=== PATIENT | female | born 1935 | race Caucasian/White ===

== ENCOUNTER 2019-04-04 03:46 | Inpatient (IN) | payer MEDICARE, OTHER ==
[2019-04-04] MEDS ORDERED: cefTRIAXone\\ROCEPHIN 1 GM VIAL ONE (04:43)
[2019-04-04] MEDS ORDERED: Vancomycin HCl 1.5 GM in Sodium Chloride 0.9% 250 ML 300 ML IVPB SCH (05:00)
[2019-04-04] MEDS ORDERED: Fentanyl 100 MCG/2 ML VIAL ONE (05:02)
--- NOTE | 2019-04-04 06:37 | PDOC.FPRHP ---
- History of Present Illness Chief Complaint: weakness, AMS History of Present Illness: 83 yo f with pmhx of afib on xarelto last taken Sunday night, HTN, and DM presents with AMS. On Sunday they went to the ER, for confusion, hard time standing and moving. Was sent home and diagnosed w/ UTI. Today after lunch she started having AMS and acting lethargic. Complained of headache making her cry , 10/10 pain, and had garbled speech. Could understand what was being said to her and could respond appropriately, but speech seemed garbled to family. They report she had fever of 101.7 F. Son states her gait was shuffled and ataxic. Home BP was 222 systolic. At OSH, she had Nausea, vomiting, phenergan helped but made her loopy. ED Course: Report of unilateral weakness at OSH. L side weakness in our ED, Given vanc, rocephin, and IV fluids. - Allergies/Adverse Reactions Allergies Allergy/AdvReac Type Severity Reaction Status Date / Time No Known Allergies Allergy Unverified 04/04/19 04:51 - History PMHx: Afib, rate controlled, DM, HTN, cervical spine stenosis and was supposed to see a neurosurgeon in 2 weeks. PSHx: Knee surgery, hysterectomy FHx: parents-CVA Social: denies smoking, alcohol, drug use - Review of Systems General: reports: fever/chills (101.7) ENT: denies: nasal congestion, rhinorrhea Respiratory: reports: shortness of breath. denies: cough, congestion Cardiovascular: denies: chest pain Gastrointestinal: reports: nausea, vomiting Genitourinary: denies: dysuria Skin: denies: rashes Neurological: reports: other (headache, worst she's every had). denies: seizure - Vital signs BP: 122/78 HR: 88 RR: 18 Tmax: 100.8 Pox: 97% on RA - Physical Exam -Constitutional: in distress with eyes closed tightly HEENT: normocephalic and atraumatic, PERRLA, EOMI (sluggish), conjunctiva clear , no scleral icterus, grossly normal hearing, MMM Neck: supple, trachea midline, no LAD Heart: RRR, normal S1/S2, no murmurs/rubs/gallops Lungs: CTAB, no respiratory distress Abdomen: soft, non-tender, bowel sounds present Musculoskeletal: normal structure -Neurological: CN II, III, IV, intact but sluggish. No facial droop. CN VII, XII intact. Sensory deficit on L leg, L arm and L face. 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 L leg weak compared to R. Decreased reflexes in lower extremities. AxO x2 but thinking she was at OSH. Laughing inappropriately at her own confusion at times. Skin: no rash/lesions Heme/Lymphatic: no unusual bruising or bleeding, no purpura FMR H&P: A/P - Plan 83 female admitted for: Stroke r/o: - Patient to have stat MRI this AM with and without contrast - Repeat head CT in AM to see if SAH developing - Bloody tap from LP, difficult to interpret for cells, no organisms seen on gram stain SIRS w/o source: - Pt meets SIRS criteria - Unclear reason of her fever. Possible meningitis/encephalitis - Empiric vancomycin and rocephin - Blood cx pending - urine cx pending A-fib: - continue xarelto DM - continue home meds HTN - hold meds for permissive HTN if stroke seen on MRI Code: FULL VTE PPx: continue home xarelto Disposition/LOS: Admit to stroke as inpatient. FMR H&P: Upper Level - Pertinent history 83 yo f with chronic afib presents with fever, ams, and left sided weakness/ numbness. Pt received aspirin and nitro in the ED in [place] - Pertinent findings Vitals: BP: 122/78 HR: 93 T:100.7 O2sat:96% 2L PE: left sided decreased sensation face=arm=leg generalized weakness in upper and lower extremities CN 2-12 intact except for trigeminal nerve (sensation to left side of face) a&ox2 CTAB RRR abdomen soft Labs: UA no bacteria blood ketones protein positive CT head w/o contrast -no acute findings CT abdomen/pelvis without contrast -no acute findings CXR- -no acute findings EKG afib rate 82 no acute ischemic changes - Plan Date/Time: 04/04/19 0634 A/P: Acute encephalopathy -infectious such as meningitis vs acute cva vs brain mass -LP completed, hd ct w/o contrast negative -pt given vanc and rocephin in the ED empirically SIRS -w/o a source -vanc/rocephin in the ED given empirically -blood and urine cx sent CVA rule out -Hd CT w/o contrast negative for acute process -Will order CTA head and neck followed by an MRI -TTE ordered as pt is in chronic afib, anticoagulated -PT/OT/SPeech -Pt given aspirin in [place] -continue high intensity statin -order flp, hba1c, tsh, mg, phosph chronic afib on anticoagulation -continue home meds DM, type 2 -restart home meds HTN -restart home meds cardiomegaly with elevated bnp -TTE is ordered CODE: Full DVT: on karely Jones MD, PGY-3
[2019-04-04 07:14] LABS: Troponin I Less than 0.010 ng/mL (< 0.028)
[2019-04-04] MEDS ORDERED: Ondansetron PF 4 MG/2 ML Vial IVP PRN (08:10)
[2019-04-04] MEDS ORDERED: Ondansetron ODT 4 MG TAB SL PRN (08:10)
[2019-04-04] MEDS: Aspirin 81 mg Enteric Coated Tablet PO SCH (10:27)
[2019-04-04] MEDS: Flecainide 50 MG TAB PO SCH ×2 (10:28→23:40)
[2019-04-04] MEDS ORDERED: Lorazepam 2 MG/ML VIAL SLOW IVP SCH (10:45)
--- NOTE | 2019-04-04 11:48 | MRI ---
MRI BRAIN NONCONTRAST: DATE: 04/04/2019 HISTORY: 83 year old female with altered mental status: Confusion. Rule out stroke. FINDINGS: All images are degraded by patient motion. There is no obstructive hydrocephalus. There is no midline shift or any other evidence of mass effect. There is no extra-axial fluid collection. There is a moderate degree of T2-hyperintensities in the cerebral white matter consistent with chronic ischemic white matter changes due to microvascular atherosclerosis. There is no evidence of recent hemorrhage or restricted diffusion. IMPRESSION: 1) moderate chronic ischemic white matter changes. 2) otherwise negative
[2019-04-04] MEDS ORDERED: ISOVUE-370 76%-LOCM 1 ML ONE (12:45)
[2019-04-04 12:59] LABS: Anion Gap 14 mmol/L (10-20); BUN (Urea Nitrogen) 19 mg/dL (9.8-20.1); Calc. Creatinine Clearance 65 mL/min (70-130); Calcium 9.1 mg/dL (7.8-10.44); Carbon Dioxide 22 mmol/L (23-31); Chloride 100 mmol/L (98-107); Estimated GFR-MDRD 51; Glucose 124 mg/dL (83-110); Potassium 4.3 mmol/L (3.5-5.1); Sodium 132 mmol/L (136-145)
[2019-04-04 13:06] LABS: Troponin I Less than 0.010 ng/mL (< 0.028)
[2019-04-04] MEDS ORDERED: Acetaminophen 650 MG Suppository PR PRN (13:34)
--- NOTE | 2019-04-04 13:45 | CT ---
CTA HEAD WITH CONTRAST AND 3D VOLUME RENDERING: INDICATION: Left-sided weakness, altered mental status. FINDINGS: Bilateral BOSSMAN and MCA are patent. The bilateral SUPERVISOR [employer]ING reveal no significant stenosis or occlusion. Ba silar artery is patent. There is calcification at the distal vertebral arteries bilaterally producin g mild left and moderate right stenosis. Calcification of each carotid terminus also produces mild b ilateral luminal stenosis. 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 Otherwise, there is no significant intracranial arterial s tenosis or occlusion identified. No discrete intracranial aneurysm is seen. POS: [facility]
--- NOTE | 2019-04-04 14:02 | CT ---
CTA NECK WITH CONTRAST: Axial tomograms obtained with multiplanar reconstruction and 3D postprocessing. INDICATION: Left side weakness. Mental status change. FINDINGS: No evidence of stenosis seen at the origin of the arch vessels. Common carotid arteries are unremarkable bilaterally with no evidence of significant atherosclerotic disease. No stenosis in either common carotid artery. Mild atherosclerotic change is seen in the bulb and proximal ICAs bilaterally. No evidence of procurement intern al carotid artery stenosis. Both distal internal carotid arteries are tortuous without stenosis. Proximal vertebral arteries are patent and symmetric. There is atherosclerotic calcification seen in the distal right vertebral artery as it enters the bas e of the skull. This does result in moderate luminal stenosis which approaches 50% diameter. The ri ght vertebral beyond this stenosis is very small. Mild atherosclerotic change in the left vertebral as it enters the skull base; however, there is no s tenosis or narrowing of the left vertebral artery. Soft tissues show no evidence of mass or adenopathy. There are moderate degenerative changes seen in the cervical spine. Facet hypertrophy is seen at mul tiple levels resulting in foraminal stenosis at C3-4, C4-5, and C5-6 levels. Posterior spondylitic c hanges impinge on the cord at C4-5. IMPRESSION: 1. Mild atherosclerotic change is seen in the bulbs bilaterally. No evidence of common carotid or i nternal carotid artery stenosis. 2. There is atherosclerotic calcification of the distal right vertebral artery as it enters the skul l base which does result in moderate luminal stenosis. The right vertebral artery beyond this stenos is is very small. POS: [facility]
--- NOTE | 2019-04-04 14:49 | CT ---
CT lumbar spine noncontrast limited: DATE: 04/04/2019 HISTORY: 83-year-old female with altered mental status. Successful lumbar puncture this morning by clinician. Image guided lumbar puncture requested. FINDINGS: The proxy informed consent form used for the lumbar puncture earlier this morning was used. Patient w as placed prone on CT table. Skin of lower back was prepared and draped in usual sterile fashion. Patient was combative, constantly moving, and holding onto the CT table, throughout the attempted pro cedure. After multiple attempts, the procedure was aborted. IMPRESSION: 1. CT guided lumbar puncture aborted because of patient's inability to cooperate. 2. Anesthesiology service will be required.
[2019-04-04] MEDS: Ampicillin 2 GM in Sodium Chloride 0.9% 100 ML IVPB SCH ×3 (15:16→21:08)
[2019-04-04] MEDS ORDERED: cefTRIAXone\\ROCEPHIN 2 GM VIAL ONE (15:26)
[2019-04-04] MEDS: Acetaminophen 325 MG TAB PO PRN (15:40)
[2019-04-04] MEDS: cefTRIAXone\\ROCEPHIN 2 GM in Sodium Chloride 0.9% 100 ML IVPB SCH (16:39)
[2019-04-04] MEDS ORDERED: Vancomycin HCl 1 GM in Premix Bag 1 BAG IVPB SCH (17:00)
[2019-04-04] MEDS: DEXAMETHASONE SOD PHOSPHATE IVPB SCH ×2 (17:30→21:08)
[2019-04-04] MEDS: SODIUM CHLORIDE 0.9% IVPB SCH ×2 (17:30→21:08)
--- NOTE | 2019-04-04 18:00 | HP ---
HISTORY OF PRESENT ILLNESS: I have examined the patient. I have discussed the case with Dr. Lin and agree with her assessment and plan. Ms. Pratt is an 83-year-old white female, who has been ill for at least several days. She has been seen in some outlying emergency rooms with AMS and confusion. She was diagnosed initially with the UTI. Later, she complained of headache, was taken back to the ER. At that time, a head CT did not show any acute changes, but she has been transferred here for a higher level of care. When she presented here, she was febrile with a temperature of a 101.7. She was complaining of headache. She had an LP in the ER, which evidently was unsuccessful and traumatic. We have started broad-spectrum antibiotics to cover the possibility of meningitis, and I have reordered another imaging study to further assess her headache and to assess for the possibility of a subarachnoid bleed given that she had complained of severe headache at the onset of this illness. However, as stated, her outlying ER head CT was negative. PHYSICAL EXAMINATION: GENERAL: On examination this morning, the patient is slightly lethargic, but arousable. She is oriented. She does complain of headache. VITAL SIGNS: Her blood pressure is 122/78, heart rate is 88, respirations are 18, current temperature is a 100.8. Her room air pulse ox is 97%. EARS, NOSE, AND THROAT: No erythema. No exudate noted. NECK: Supple. CARDIAC: Heart rhythm is regular. S4 gallop. No murmur or rub noted. LUNGS: Clear, but diminished. No wheezing or rales. No respiratory distress. ABDOMEN: Flat, scaphoid, soft, obese. No guarding or rebound. NEUROLOGICAL: Neurologically, she has evidence of some left-sided weakness, which is very subtle. She is oriented x2. LABORATORY DATA: From the outlying ER is not yet available. ASSESSMENT: Possible stroke, possible sepsis, possible meningitis. PLAN: We will admit the patient. Begin antibiotics. Repeat imaging studies to include MRI with and without contrast and proceed based on these findings. Job ID: [id number]
[2019-04-04] MEDS: metFORMIN 500 MG TAB PO SCH (18:32)
--- NOTE | 2019-04-04 18:49 | CON ---
DATE OF CONSULTATION: 04/04/2019 This consult is performed via telemedicine with RN, Jimmy Schroeder. CHIEF COMPLAINT: The patient with lethargy and headache. HISTORY OF PRESENT ILLNESS: History was obtained from her nephew and her family members who were in the room. He reports the patient has had headache for a few days. She also had a workup with her primary care doctor. They shared the MRI C-spine results with me, which showed multiple levels of disk osteophyte complexes, flattening of ventral cord at C3-C4, and also foraminal narrowing and central canal stenosis. The patient was told that she had these headaches due to the neck symptoms. Yesterday, her blood pressure went up to 220/180 at lunch and she became lethargic and her hand fell in the food and they came to the hospital for this reason. She is being worked up by the treatment team, which is a teaching team at this time and a consult was made to check if she had meningitis. The patient was responsive earlier before my visit with her this evening and in the afternoon when we gathered information, the patient was down in CT angio plus LP. She had a lumbar puncture at an outside facility. It was a bloody tap, so far no growth. Number of RBCs and white count was not available per the report. No protein or glucose was available to me either for review. At the outside facility, she was having some nausea and vomiting and received Phenergan, which made her a bit loopy per the chart. The patient's family also relayed that the patient had a recent urinary infection. PREVIOUS MEDICAL HISTORY: Hypertension, diabetes, cervical spinal canal stenosis. PAST SURGICAL HISTORY: Knee surgery and hysterectomy. FAMILY HISTORY: Parents had CVA. SOCIAL HISTORY: The patient is not a smoker or alcoholic. REVIEW OF SYSTEMS: Difficult to obtain from the patient because she was very obtunded and sleepy when we saw her. LABORATORY AND DIAGNOSTIC DATA: Her current lab workup; sodium 132, potassium 4.3, bicarb 22, BUN 19, and creatinine 1.04. Her white count not available to me for review at our current labs, looks like it is pending. Hepatitis/HIV scan is negative. Preliminary microbiology report for CSF showed no organisms, few white cells, many RBCs were present. Protein and glucose for CSF are not available to me. Also, her CT angiography was completed. CT [place] and CT angio of the neck showed atherosclerotic calcification of distal right vertebral artery. Mild atherosclerotic changes in the ICA bulb. MRI of the brain was also reviewed and it showed moderate chronic ischemic white matter changes, otherwise negative. PHYSICAL EXAMINATION: VITAL SIGNS: Temperature 100.2, pulse 79, respiratory rate 16, and blood pressure 186/90. GENERAL APPEARANCE: The patient is very sleepy, difficult to arouse. CHEST: Clear vesicular breathing. CARDIOVASCULAR: S1 and S2 heard. NEUROLOGIC: Higher intellectual functions. The patient was very sleepy, difficult to arouse. Pupils were 2 mm, reactive. Past this, the patient's was upset with us and told us to leave her alone and asked us to stop examining the patient. IMPRESSION AND RECOMMENDATIONS: The patient is an 83-year-old lady with history of hypertension, became lethargic. She also has had headaches, recently had cervical spine stenosis. Her limited examination performed by our team so far showed no neck rigidity. She was sedated with Ativan, and she was not responsive and pupils were 2 mm. At that point, we were asked to stop examining the patient and leave the room. Based on this limited evaluation, it is difficult to make comprehensive assessment. However, based on evidence and my observation plus exam of the patient, we are able to say there is no neck stiffness when she is sleepy, which is not typical for meningismus. At this time, she does have cervical spine stenosis. The neck stiffness observed when she was agitated or awake, could have been due to neck muscle spasms. At this time, I am unable to help you any further. Recommendation would be to wait for culture results and we will reassess the patient tomorrow. Job ID: [id number] [facility]
[2019-04-04] MEDS: Rivaroxaban 10 MG TAB PO SCH ×2 (19:19→23:39)
--- NOTE | 2019-04-04 21:02 | PDOC.FM ---
Addendum entered and electronically signed by Bessy Jama DO 04/05/19 12:06: Date 04/05/19, 11:30 Original Note: - Subjective Subjective: At 6 AM: Pt awakens when I enter the room, opens eyes and moves extremities. Pt spoke in 4-5 word sentences. Pt knows she is somewhere because of a BP problem. Mumbles a lot and does not follow commands. Denies any pain. Later at 10:30: Pt is fully awake, sitting up in bed talking with family and carrying a conversation. Has no current complaints. States her head does not hurt. - Objective MAR Reviewed: Yes Vital Signs & Weight: Vital Signs (12 hours) Temp Pulse Resp BP Pulse Ox 04/04/19 19:56 99.5 F 92 16 140/60 91 L 04/04/19 16:55 135/65 04/04/19 16:00 98.7 F 89 18 169/81 H 94 L 04/04/19 12:47 100.2 F H 79 16 186/90 H 92 L Weight Admit Weight 97.749 kg Weight 97.749 kg Selected Entries 04/05/19 04/05/19 04/05/19 00:00 04:00 08:00 Blood Pressure 168/87 H 137/79 155/73 H [semi fowlers] I&O: 04/03/19 04/04/19 04/05/19 06:59 06:59 06:59 Intake Total 700 Output Total 10 Balance 690 Result Diagrams: 04/05/19 18:13 04/05/19 18:13 Radiology Reviewed by me: Yes (CTA vascular disease of distal vertebral artery and distal cartids ) Phys Exam - Physical Examination Constitutional: NAD HEENT: PERRLA, sclera anicteric Dry MM. Neck: no nodes, no JVD, supple Respiratory: no wheezing, no rales, no rhonchi, clear to auscultation bilateral Cardiovascular: RRR, no significant murmur, no rub Gastrointestinal: soft, no distention, positive bowel sounds Tenderness to light palpation over LLQ abdomen. Musculoskeletal: no edema, pulses present Neurological: non-focal, normal sensation, moves all 4 limbs Downward babinski bilaterally. PERRLA Psychiatric: normal affect, A&O x 3 Deviation from normal: Oriented to person, place, and time. Skin: no rash, normal turgor, cap refill <2 seconds Dx/Plan (1) Hypertensive urgency Code(s): I16.0 - HYPERTENSIVE URGENCY Status: Acute (2) Encephalopathy acute Code(s): G93.40 - ENCEPHALOPATHY, UNSPECIFIED Status: Acute (3) SIRS (systemic inflammatory response syndrome) Code(s): R65.10 - SIRS OF NON-INFECTIOUS ORIGIN W/O ACUTE ORGAN DYSFUNCTION Status: Acute (4) Fever Code(s): R50.9 - FEVER, UNSPECIFIED Status: Acute Qualifiers: Fever type: unspecified Qualified Code(s): R50.9 - Fever, unspecified (5) A-fib Code(s): I48.91 - UNSPECIFIED ATRIAL FIBRILLATION Status: Acute (6) HTN (hypertension) Code(s): I10 - ESSENTIAL (PRIMARY) HYPERTENSION Status: Acute (7) Diabetes mellitus Code(s): E11.9 - TYPE 2 DIABETES MELLITUS WITHOUT COMPLICATIONS Status: Acute Qualifiers: Diabetes mellitus type: type 2 Diabetes mellitus usp insulin use: unspecified terminal clerk insulin use status - Plan Plan: 83 y/o F admitted for Acute Encephalopathy work up. Etiology unclear, infectious suspected, but no known source. 1. Acute encephalopathy -infectious such as meningitis vs acute cva/TIA - Encephalopathy has improved with gradual lowering of BP's and X2 days of antibiotic therapy. Possible cause was HTN urgency vs emergency. -Awaiting LP ccx -CT w/o contrast negative -pt given vanc and rocephin in the ED empirically -Continue antibiotic therapy of Vanc, Rocephin, Ampicillin -Continue dexamethasone for total of X4 days. Stop date 04/07. - Case Management will see pt for potential rehab placement 2. SIRS -fever without a source -Tmax overnight 99.5 F -blood ccx no growth to date, and urine cxx pending -PE was not suggestive of Meningitis, as no meningismus 3. CVA rule out -CT w/o contrast negative for acute process -CTA [place] showed vascular disease of vertebral and distal carotids arteries bilaterally. Moderate stenosis of the distal R vertebral artery. -CTA Head and neck showed no common carotid or internal carotid artery stenosis , but confirmed above findings in [place]. -Head MRI showed no acute changes, but chronic ischemic white matter changes. -TTE ordered as pt is in chronic afib, anticoagulated with Xarelto -PT/OT/Speech consults -continue high dose statin therapy - Fasting Lipid panel: Total chol 174, LDL 116, HDL 37, Triglycerides 103 4. Chronic afib on anticoagulation -continue Xarelto 5. DM, type 2 -continue home meds 6. HTN -Restarted home Metoprolol Tartrate 50 BID -Hydralazine for PRN BP control 7. Cardiomegaly with elevated BNP -TTE is ordered CODE: Full DVT: on xarelto Addendum - Attending - Attending Attestation Date/Time: 04/05/191956 I personally evaluated the patient and discussed the management with Dr. Marie I agree with the History, Examination, Assessment and Plan documented above with any addition or exceptions noted below. Patient more alert during attending rounds. relates patients BP labile some underlying dementia will continue antibiotic CT attempt for LP yesterday unsuccessful CSF from traumatic tap with no growth continue ABX for now. Suspect encephalopathy secondary to hypertension continue observation. Discussed rehab placement with patient, and son.
[2019-04-04] MEDS ORDERED: Enoxaparin Sodium 40 MG/0.4 ML SYRINGE SC SCH (23:30)
--- NOTE | 2019-04-04 23:33 | PDOC.EVN ---
Event Note - Event Note Event Note: Neuro Change Evaluation Received report from RN that when attempting to give pt nighttime medications, pt would not follow commands. Pt laughing inappropriately. Went to assess pt. GCS 12 (3E, 6M, 3V) which is decreased from seeing her in ED yesterday. Expressive aphasia. Pt responds to questions but words are jumbled and incoherent. Often not forming words. Strength 4/5 R and 3/5 on L. Would not command to lift legs. DTRs 2+ in LLE, b/l UE. Not elicited in RLE possibly due to knee arthroplasty. Cranial nerve assessment limited. PEERLA. Would not follow commands for other cranial nerves. Assess/Plan: Acute neuro change: - CBC, trops, prolactin, EKG, and STAT CT w/o contrast ordered.
[2019-04-04] MEDS: Atorvastatin Calcium 40 MG TAB PO SCH (23:39)
[2019-04-04 23:47] LABS: #Lymphocytes 0.9 thou/uL (1.20-3.40); #Monocytes 0.1 thou/uL (0.11-0.59); #Neutrophils 5.7 thou/uL (1.40-6.50); %Basophils 0.1 % (0.0-1.0); %Eosinophils 0.3 % (0.0-10.0); %Lymphocytes 13.6 % (21.0-51.0); %Monocytes 1.9 % (0.0-10.0); %Neutrophils 84.1 % (42.0-75.0); Hemoglobin 12.8 g/dL (12.0-16.0); Mean Corpuscular HGB CONC 33.7 g/dL (32.0-36.0); Mean Corpuscular Hemoglobin 30.3 pg (27.0-31.0); Mean Platelet Volume 7.9 fL (7.4-10.4); Platelet Count 213 thou/uL (130-400); RBC Distribution Width 12.2 % (11.5-14.5); Red Blood Cell (RBC) Count 4.22 mill/uL (4.20-5.40); White Blood Cell (WBC) Count 6.7 thou/uL (4.8-10.8)
[2019-04-05] MEDS: Ampicillin 2 GM in Sodium Chloride 0.9% 100 ML IVPB SCH ×7 (00:40→23:53)
[2019-04-05] MEDS: DEXAMETHASONE SOD PHOSPHATE IVPB SCH ×4 (01:20→21:15)
[2019-04-05] MEDS: SODIUM CHLORIDE 0.9% IVPB SCH ×4 (01:20→21:15)
[2019-04-05] MEDS: cefTRIAXone\\ROCEPHIN 2 GM in Sodium Chloride 0.9% 100 ML IVPB SCH ×2 (03:41→17:11)
[2019-04-05 05:43] LABS: #Lymphocytes 0.8 thou/uL (1.20-3.40); #Monocytes 0.1 thou/uL (0.11-0.59); %Eosinophils 0.1 % (0.0-10.0); %Lymphocytes 11.4 % (21.0-51.0); %Monocytes 1.8 % (0.0-10.0); %Neutrophils 86.7 % (42.0-75.0); Hemoglobin 12.9 g/dL (12.0-16.0); Mean Corpuscular HGB CONC 33.8 g/dL (32.0-36.0); Mean Corpuscular Hemoglobin 30.6 pg (27.0-31.0); Mean Corpuscular Volume 90.5 fL (78.0-98.0); Mean Platelet Volume 8.3 fL (7.4-10.4); Platelet Count 207 thou/uL (130-400); RBC Distribution Width 12.2 % (11.5-14.5); Red Blood Cell (RBC) Count 4.22 mill/uL (4.20-5.40); White Blood Cell (WBC) Count 6.9 thou/uL (4.8-10.8)
[2019-04-05 06:03] LABS: Anion Gap 13 mmol/L (10-20); BUN (Urea Nitrogen) 16 mg/dL (9.8-20.1); Calc. Creatinine Clearance 79 mL/min (70-130); Calcium 9.3 mg/dL (7.8-10.44); Carbon Dioxide 23 mmol/L (23-31); Cardiac Risk 4.7 (Less than 4.5); Chloride 100 mmol/L (98-107); Cholesterol 174 mg/dl (< 200 Desired); Estimated GFR-MDRD 63; Glucose 185 mg/dL (83-110); HDL Cholesterol 37 mg/dL (>60 Neg Risk); LDL Cholesterol, Calculated 116 mg/dL; Potassium 4.3 mmol/L (3.5-5.1); Sodium 132 mmol/L (136-145); Triglycerides 103 mg/dL (Less than 150)
--- NOTE | 2019-04-05 08:04 | CT ---
PRELIMINARY REPORT/[facility]/EMERGENCY AFTER HOURS PROCEDURE: EXAM: CT Head Without Contrast EXAM DATE/TIME: 04/05/2019 12:12 AM CLINICAL HISTORY: 83 years old, female; Altered mental status/memory loss; Patient HX: Mental status change approx 2000 , PT unable to follow commands and has had speech change TECHNIQUE: Imaging protocol: Computed tomography of the head without contrast. COMPARISON: No relevant prior studies available. FINDINGS: Brain: Scattered areas of hypoattenuation, likely chronic small vessel ischemic change, demyelination , or gliosis. No mass, hemorrhage, or acute infarction. Ventricles: Normal. Bones/joints: Normal. Sinuses: Normal as visualized. Mastoid air cells: Normal as visualized. Soft tissues: Unremarkable. Vasculature: Atherosclerotic vascular calcifications. IMPRESSION: No acute intracranial abnormality. Thank you for allowing us to participate in the care of your patient. Dictated and Authenticated by: Jd Julien MD 04/05/2019 12:50 AM Central Time ([place] & [place]) FINAL REPORT CT HEAD WITHOUT CONTRAST: IMPRESSION: Chronic ischemic change. No acute abnormality. I am in agreement with the preliminary report issued tiffanie Sierra. POS: OFF
[2019-04-05] MEDS: Aspirin 81 mg Enteric Coated Tablet PO SCH (09:14)
[2019-04-05] MEDS: metFORMIN 500 MG TAB PO SCH ×2 (09:15→17:06)
[2019-04-05] MEDS: Flecainide 50 MG TAB PO SCH ×2 (09:16→21:23)
--- NOTE | 2019-04-05 11:05 | PRG ---
DATE OF SERVICE: 04/05/2019 This is a followup note via Telemedicine with nurse, Geetha. CHIEF COMPLAINT: Altered mental status. INTERVAL HISTORY: The patient is doing much better today. She has been receiving physical therapy as well. There is still mild confusion, but overall, she is better. She has received 2 to 3 days of antibiotics so far. She is pending interim IR procedure for LP, and microbiology results so far did not indicate any growth either in blood culture or CSF culture, but the spinal tap was bloody tap. White count 6.9, hemoglobin 12.9, hematocrit 38.2, and platelet count 207. Chemistry; sodium 132, potassium 4.3, chloride 100, bicarb 23, BUN 16, creatinine 0.86, and glucose 185. Lipid profile is within normal limits. PHYSICAL EXAMINATION: VITAL SIGNS: Temperature 97.8, pulse 100, respiratory rate is 18, O2 saturation is 95, and blood pressure 155/73. GENERAL APPEARANCE: Well-built, well-nourished lady, who is smiling and very pleasant. CHEST: Clear vesicular breathing. CVS: S1, S2 heard. No murmurs. NEUROLOGIC: She was oriented to place and person and knew the month was March. NECK: No neck stiffness was noted. NEUROLOGIC: Cranial nerves, no facial asymmetry. Normal extraocular movements. Normal sensation of face. Normal hearing. Normal elevation of palate. Tongue midline. Motor; muscle bulk normal, tone normal. Strength, 5/5 in both upper and lower extremities. Deep tendon reflex, 2+ in the right arm in both legs and left arm, 1+. Sensory was normal. Cerebellar was normal. IMPRESSION: The patient is an 83-year-old lady who was admitted with altered mental status as well as some confusion and lethargy, and she did have a recent urinary tract infection, and she had been diagnosed with some neck problems as well. Her examination today was normal. We obtained family consent for this examination, and I answered all the questions that the family had about her C-spine abnormality. RECOMMENDATIONS: 1. Since she is doing much better and the results of LP may be of low-yield at this time. I discussed with the primary care team to see if they would consider not doing another LP. 2. The patient needs to see her neurosurgeon in 10 days for her neck evaluation. At this time, I do not see any findings of myelopathy. We will see the patient as needed. Job ID: [id number] MTDD
[2019-04-05] MEDS: hydrALAZINE 20 MG/ML VIAL SLOW IVP PRN ×2 (12:24→17:09)
--- NOTE | 2019-04-05 14:57 | EKG ---
Test Reason : Blood Pressure : / mmHG Vent. Rate : 094 BPM Atrial Rate : 104 BPM P-R Int : 000 ms QRS Dur : 102 ms QT Int : 370 ms P-R-T Axes : 000 054 044 degrees QTc Int : 462 ms Atrial fibrillation Abnormal ECG Confirmed by UNIQUE AMEZCUA M.D. ([id number]), greeting card editor KATHERINE GENTILE ([id number]) on 04/05/2019 2:57:08 PM Referred By: Confirmed By:UNIQUE AMEZCUA M.D.
[2019-04-05] MEDS: Acetaminophen 325 MG TAB PO PRN (17:41)
[2019-04-05] MEDS: Metoprolol Tartrate 50 MG TAB PO SCH (17:48)
[2019-04-05] MEDS ORDERED: Metoprolol Tartrate 5 MG/5 ML VIAL IVP SCH (18:00)
[2019-04-05] MEDS ORDERED: Nitroglycerin 0.4 MG TAB (25 Tab Bottle) ONE (18:15)
[2019-04-05] MEDS ORDERED: Nitroglycerin 2% Ointment 1 INCH/1 GM Packet ONE (18:15)
[2019-04-05] MEDS ORDERED: Diltiazem HCl 125 MG, Admixture Fee 1 EACH in Sodium Chloride 0.9% 100 ML IVPB SCH (18:15)
[2019-04-05] MEDS ORDERED: Lorazepam 2 MG/ML VIAL ONE (18:45)
[2019-04-05 18:48] LABS: #Lymphocytes 1.1 thou/uL (1.20-3.40); #Monocytes 0.3 thou/uL (0.11-0.59); #Neutrophils 9.3 thou/uL (1.40-6.50); %Basophils 0.1 % (0.0-1.0); %Eosinophils 0.2 % (0.0-10.0); %Lymphocytes 9.9 % (21.0-51.0); %Monocytes 2.8 % (0.0-10.0); %Neutrophils 86.9 % (42.0-75.0); Hemoglobin 13.2 g/dL (12.0-16.0); Mean Corpuscular HGB CONC 34.3 g/dL (32.0-36.0); Mean Corpuscular Hemoglobin 31.1 pg (27.0-31.0); Mean Corpuscular Volume 90.5 fL (78.0-98.0); Mean Platelet Volume 8.2 fL (7.4-10.4); Platelet Count 227 thou/uL (130-400); RBC Distribution Width 12.2 % (11.5-14.5); Red Blood Cell (RBC) Count 4.24 mill/uL (4.20-5.40); White Blood Cell (WBC) Count 10.7 thou/uL (4.8-10.8)
[2019-04-05 19:00] LABS: Anion Gap 18 mmol/L (10-20); BUN (Urea Nitrogen) 19 mg/dL (9.8-20.1); CK (CPK) 109 U/L (29-168); Calc. Creatinine Clearance 68 mL/min (70-130); Calcium 9.4 mg/dL (7.8-10.44); Carbon Dioxide 20 mmol/L (23-31); Chloride 98 mmol/L (98-107); Estimated GFR-MDRD 53; Glucose 224 mg/dL (83-110); Potassium 3.8 mmol/L (3.5-5.1); Sodium 132 mmol/L (136-145)
[2019-04-05 19:05] LABS: CKMB 2.3 ng/mL (0-6.6); Troponin I Less than 0.010 ng/mL (< 0.028)
--- NOTE | 2019-04-05 19:36 | CT ---
CT OF BRAIN PERFORMED WITHOUT CONTRAST ENHANCEMENT: 04/05/19 HISTORY: Vision changes. Slurred speech. COMPARISON: Earlier examination same day. Generalized ventricular and sulcal prominence with decreased attenuation to the periventricular white matter consistent with chronic ischemic white matter change. There are no signs of intracerebral hem orrhage or extra-axial fluid collections. The mastoid air cells are clear. The visualized sinuses sh ow minimal mucosal change within the ethmoid air cells. IMPRESSION: 1. No acute intracranial abnormalities. 2. Findings telephoned to nurseKaykay at the time of this dictation. POS: TERRENCE
--- NOTE | 2019-04-05 19:39 | RAD ---
PORTABLE CHEST: 04/05/19 INDICATIONS: Atrial fibrillation. Chest pain. Mild cardiomegaly. Mild vascular congestion. No focal infiltrate, effusion, or significant edema. IMPRESSION: Cardiomegaly with mild vascular congestion. POS: AGW
[2019-04-05 19:50] LABS: INR-International Normal Ratio 1.1; PTT 28.3 SEC (22.9-36.1); Prothrombin Time 14.2 SEC (12.0-14.7)
[2019-04-05] MEDS: Atorvastatin Calcium 40 MG TAB PO SCH (21:25)
[2019-04-05] MEDS ORDERED: Rivaroxaban 10 MG TAB PO SCH ×2 (22:30)
[2019-04-05] MEDS ORDERED: Lorazepam 2 MG/ML VIAL SLOW IVP PRN (22:39)
[2019-04-06 00:40] LABS: Hemoglobin 12.2 g/dL (12.0-16.0); Platelet Count 220 thou/uL (130-400)
[2019-04-06 00:57] LABS: Lactic Acid 3.5 mmol/L (0.5-2.2)
[2019-04-06] MEDS: DEXAMETHASONE SOD PHOSPHATE IVPB SCH ×3 (01:35→13:48)
[2019-04-06] MEDS: SODIUM CHLORIDE 0.9% IVPB SCH ×3 (01:35→13:48)
[2019-04-06] MEDS: Ampicillin 2 GM in Sodium Chloride 0.9% 100 ML IVPB SCH ×5 (01:36→17:35)
[2019-04-06] MEDS: cefTRIAXone\\ROCEPHIN 2 GM in Sodium Chloride 0.9% 100 ML IVPB SCH ×2 (04:26→16:55)
--- NOTE | 2019-04-06 05:29 | PDOC.FM ---
- Subjective Subjective: Pt had an episode of A. fib with RVR overnight. She was given a dose of metoprolol and started on a cardizem drip. The cardizem drip was discontinued after a couple of hours as the pt's HR was below 60. Acute elevation in Troponins. Pt developed loss of vision. Transferred to [facility]. CT head showed no acute findings. This morning the pt is resting comfortably, HR in the 75-80 range. She states her vision is back to normal. Pt denies any weakness or paresthesia. She feels confused. - Objective MAR Reviewed: Yes Vital Signs & Weight: Vital Signs (12 hours) Temp Pulse Pulse Pulse Pulse Pulse Pulse 04/06/19 00:00 97.9 F 04/05/19 21:51 04/05/19 21:50 04/05/19 19:30 98.4 F 04/05/19 18:07 152 H 136 H 133 H 147 H 111 H 137 H Pulse Pulse Pulse Resp BP BP BP 04/06/19 00:00 04/05/19 21:51 04/05/19 21:50 16 04/05/19 19:30 04/05/19 18:07 135 H 119 H 121 H 132/50 L 133/84 126/56 L BP BP BP BP BP BP Pulse Ox 04/06/19 00:00 04/05/19 21:51 97 04/05/19 21:50 96 04/05/19 19:30 04/05/19 18:07 100/59 L 98/56 L 116/72 138/110 H 133/80 139/90 Pulse Ox Pulse Ox 04/06/19 00:00 04/05/19 21:51 04/05/19 21:50 04/05/19 19:30 04/05/19 18:07 97 96 Weight Admit Weight 97.749 kg Weight 97.749 kg Most Recent Monitor Data Heart Rate from ECG 71 NIBP 114/63 NIBP BP-Mean 80 Respiration from ECG 17 SpO2 99 I&O: 04/04/19 04/05/19 04/06/19 06:59 06:59 06:59 Intake Total 700 Output Total 10 Balance 690 Result Diagrams: 04/06/19 00:30 04/05/19 18:13 Radiology Reviewed by me: Yes (CT head, no acute findings. ) Phys Exam - Physical Examination Constitutional: NAD HEENT: PERRLA, moist MMs, sclera anicteric Neck: no nodes, no JVD, supple, full ROM Respiratory: no rales, no rhonchi, wheezing present Cardiovascular: no significant murmur, no rub irregularly irregular, rate 80 bpm. Gastrointestinal: soft, non-tender, no distention, positive bowel sounds Musculoskeletal: pulses present, edema present (2+ pitting edema bilaterally. ) Neurological: non-focal, normal sensation, moves all 4 limbs Psychiatric: normal affect Deviation from normal: oriented to person and time. Disoriented to place and situation. Skin: no rash, normal turgor, cap refill <2 seconds Dx/Plan (1) Encephalopathy acute Code(s): G93.40 - ENCEPHALOPATHY, UNSPECIFIED Status: Acute (2) Hypertensive urgency Code(s): I16.0 - HYPERTENSIVE URGENCY Status: Acute (3) SIRS (systemic inflammatory response syndrome) Code(s): R65.10 - SIRS OF NON-INFECTIOUS ORIGIN W/O ACUTE ORGAN DYSFUNCTION Status: Acute (4) Fever Code(s): R50.9 - FEVER, UNSPECIFIED Status: Acute Qualifiers: Fever type: unspecified Qualified Code(s): R50.9 - Fever, unspecified (5) A-fib Code(s): I48.91 - UNSPECIFIED ATRIAL FIBRILLATION Status: Acute Qualifiers: Atrial fibrillation type: paroxysmal Qualified Code(s): I48.0 - Paroxysmal atrial fibrillation (6) HTN (hypertension) Code(s): I10 - ESSENTIAL (PRIMARY) HYPERTENSION Status: Acute (7) Diabetes mellitus Code(s): E11.9 - TYPE 2 DIABETES MELLITUS WITHOUT COMPLICATIONS Status: Acute Qualifiers: Diabetes mellitus type: type 2 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 Etiology unclear, infectious suspected, but no known source. 1. Acute encephalopathy -infectious such as meningitis vs acute cva/TIA - Encephalopathy has improved with gradual lowering of BP's and X2 days of antibiotic therapy. Possible cause was HTN urgency vs emergency. -LP ccx, no growth to date -CT w/o contrast negative -pt given vanc and rocephin in the ED empirically -Continue antibiotic therapy of Vanc, Rocephin, Ampicillin -Continue dexamethasone for total of X4 days. Stop date 04/07. - Case Management will see pt for potential rehab placement 2. SIRS -fever without a source -No overnight fever -blood ccx and urine cxx no growth to date -PE was not suggestive of Meningitis, as no meningismus - Pt is wheezing today 04/06. CXray on 04/05 showed cardiomegaly with mild vascular congestion. 3. Paroxysmal A. Fib with RVR - Pt had a fib with RVR overnight (04/06) - Diltiazem drip started overnight and discontinued around 0200 on 04/06, after HR lowered below 60. - Continue Flecainide, metoprolol and Xarelto - Consult cardiology 4. Elevated troponin levels - Trops 0.250, 0.148 - Most likely from demand ischemia - Trend trops 5. CVA rule out -CT w/o contrast negative for acute process during overnight event of acute onset of blindness. 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 Moderate stenosis of the distal R vertebral artery. -CTA Head and neck showed no common carotid or internal carotid artery stenosis , but confirmed above findings in [place] [facility] [place]. -Head MRI showed no acute changes, but chronic ischemic white matter changes. -TTE ordered as pt is in chronic afib, anticoagulated with Xarelto -PT/OT/Speech consults -continue high dose statin therapy - Fasting Lipid panel: Total chol 174, LDL 116, HDL 37, Triglycerides 103 5. Chronic afib on anticoagulation -continue Xarelto 6. DM, type 2 -continue home meds 7. HTN -Restarted home Metoprolol Tartrate 50 BID -Hydralazine for PRN BP control 8. Cardiomegaly with elevated BNP -TTE EF 50-55%, nml pulmonary pressures CODE: Full DVT: on xarelto Addendum - Attending - Attending Attestation Date/Time: 04/06/19 1148 I personally evaluated the patient and discussed the management with Dr. Jama I agree with the History, Examination, Assessment and Plan documented above with any addition or exceptions noted below. Patient continue to wax and wane mentally was extremely lucid yesterday to acute delerium last pm. Spouse contributing to her confusion with well meaning but overstimulation of patient. Patient per family with known underlying baseline dementia, Episodes correlated to episodes of Af with RVR, patient with prior DC cardioversion per [place] Bacteriologist [place]. Will ask Cardiology today for help with Atrial fibrillation management rate currently controlled with BB , patient has been on xarelto and flecainide, obtain echocardiogram and continued observation. Can d/c empirical antibiotic and dexamethasone if CSF cultures negative at 48 hours.
[2019-04-06] MEDS: metFORMIN 500 MG TAB PO SCH ×2 (09:43→16:55)
[2019-04-06] MEDS: Metoprolol Tartrate 50 MG TAB PO SCH (09:44)
[2019-04-06] MEDS: Flecainide 50 MG TAB PO SCH (09:44)
[2019-04-06] MEDS: Aspirin 81 mg Enteric Coated Tablet PO SCH (09:44)
[2019-04-06] MEDS: Haloperidol Lactate 5 MG/ML VIAL SLOW IVP PRN ×2 (10:03→13:49)
--- NOTE | 2019-04-06 10:36 | EKG ---
Test Reason : STAT Blood Pressure : / mmHG Vent. Rate : 084 BPM Atrial Rate : 082 BPM P-R Int : 000 ms QRS Dur : 090 ms QT Int : 380 ms P-R-T Axes : 000 049 052 degrees QTc Int : 449 ms Atrial fibrillation Abnormal ECG When compared with ECG of 04-APR-2019 04:06, No significant change was found Confirmed by DR. Abdirahman ARREOLA ([id number]) on 04/06/2019 10:36:02 AM Referred By: Confirmed By:DR. Abdirahman ARREOLA
[2019-04-06 12:12] LABS: Anion Gap 16 mmol/L (10-20); BUN (Urea Nitrogen) 20 mg/dL (9.8-20.1); Calc. Creatinine Clearance 82 mL/min (70-130); Calcium 9.3 mg/dL (7.8-10.44); Carbon Dioxide 22 mmol/L (23-31); Chloride 101 mmol/L (98-107); Estimated GFR-MDRD 65; Glucose 203 mg/dL (83-110); Magnesium 1.8 mg/dL (1.6-2.6); Phosphorus 2.8 mg/dL (2.3-4.7); Sodium 135 mmol/L (136-145)
[2019-04-06] MEDS: Rivaroxaban 10 MG TAB PO SCH (17:35)
[2019-04-06 18:05] LABS: Bacteria/HPF None Seen HPF (None Seen); Bilirubin Negative (Negative); Blood, Urine Negative (Negative); Clarity Clear (Clear); Glucose, Urine (Dipstick) 200 mg/dL (Negative); Leukocyte Negative Leu/uL (Negative); Nitrite Negative (Negative); Protein, Urine (Dipstick) 10 mg/dL (Neg-Trace); RBC/HPF 0-3 HPF (0-3); Squamous Epithelial 0-3 HPF (0-3); Urobilinogen Normal mg/dL (Less than 2); WBC/HPF 0-3 HPF (0-3)
[2019-04-06 18:09] LABS: Urine Culture Reflex No No
[2019-04-06] MEDS: Atorvastatin Calcium 40 MG TAB PO SCH (21:24)
--- NOTE | 2019-04-07 05:34 | PDOC.FM ---
- Subjective Subjective: Mrs. Pratt appeared well this morning and complained of no overnight events. She is still moderately disoriented, being oriented only to person. She was accompanied by several family members at the time of the evaluation, who all seemed to believe that her condition had improved greatly since she was admitted on Sunday. She denied any chest pain, shortness of breath or abdominal pain at this time. - Objective Vital Signs & Weight: Vital Signs (12 hours) Temp Pulse Resp Pulse Ox 04/07/19 00:40 79 20 95 04/07/19 00:00 97.7 F 04/06/19 20:00 97.7 F 04/06/19 18:25 97 Weight Admit Weight 97.749 kg Weight 98.883 kg Most Recent Monitor Data Heart Rate from ECG 89 NIBP 143/71 NIBP BP-Mean 95 Respiration from ECG 12 SpO2 100 I&O: 04/05/19 04/06/19 04/07/19 06:59 06:59 06:59 Intake Total 700 900 427 Output Total 10 250 1100 Balance 690 650 -673 Result Diagrams: 04/06/19 00:30 04/06/19 11:31 Phys Exam - Physical Examination Constitutional: NAD HEENT: PERRLA, moist MMs, sclera anicteric, oral pharynx no lesions Neck: no nodes, supple, full ROM Respiratory: no rales, no rhonchi Mild wheezing was appreciated during the physical exam Cardiovascular: RRR, no significant murmur, no rub Gastrointestinal: soft, non-tender, no distention Musculoskeletal: no edema, pulses present Neurological: non-focal, normal sensation, moves all 4 limbs Lymphatic: no nodes Psychiatric: normal affect Dx/Plan (1) A-fib Code(s): I48.91 - UNSPECIFIED ATRIAL FIBRILLATION Status: Acute Qualifiers: Atrial fibrillation type: paroxysmal Qualified Code(s): I48.0 - Paroxysmal atrial fibrillation (2) Diabetes mellitus Code(s): E11.9 - TYPE 2 DIABETES MELLITUS WITHOUT COMPLICATIONS Status: Acute Qualifiers: Diabetes mellitus type: type 2 Diabetes mellitus care home insulin use: unspecified meterman insulin use status (3) Encephalopathy acute Code(s): G93.40 - ENCEPHALOPATHY, UNSPECIFIED Status: Acute (4) Hypertensive urgency Code(s): I16.0 - HYPERTENSIVE URGENCY Status: Acute (5) SIRS (systemic inflammatory response syndrome) Code(s): R65.10 - SIRS OF NON-INFECTIOUS ORIGIN W/O ACUTE ORGAN DYSFUNCTION Status: Acute - Plan Plan: 1. Acute Encephalopathy, greatly resolved -Infectious (i.e. Meningitis) vs acute CVA/TIA vs. unknown CV Etiology -Encephalopathy has improved with gradual lowering of BP's and X2 days of antibiotic / steroid therapy -LP Culture: No growth to date -CT Brain: NAF -Brain MRI: NAF -CTA Head: NAF -CTA Neck: NAF -Patient given Vanc and Rocephin in the ED, empirically -Patient received Vanc, Rocephin, Ampicillin on the Medical Floor, empirically - DC'd on 04/06/19 -Dexamethasone administered for 4 days - DC'd on 04/06/19 -Case Management will see patient and family for potential rehab placement -Coordinate closely with Cardiology, as that is the most likely etiology of the patient's current encephalopathy 2. SIRS -Fever without a source -Patient continues to remain afebrile -Blood Culture: Negative > 48 hours -Urine Culture: Negative > 48 hours -PE was not suggestive of Meningitis -Patient was wheezing on 04/06/19 and 04/07/19 - CXR on 04/05/19 showed cardiomegaly with mild vascular congestion -Administer nebulizer treatments PRN for wheezing 3. Paroxysmal A. Fib with RVR -Patient had A-Fib with RVR on 04/06/19 -Diltiazem drip started overnight and discontinued around 0200 on 04/06, after HR fell < 60. -Continue fllecainide, metoprolol and Xarelto -Consult Cardiology 4. Elevated Troponin Levels -Trops: 0.250, 0.148 -Most likely from demand ischemia -Continue to trend Trops 5. CVA Rule Out -CT w/o contrast negative for acute process during overnight event of acute onset of blindness on 04/06/19 -CTA [place] showed vascular disease of Vertebral and distal Carotids Arteries bilaterally. 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 -CTA Head and Neck showed no common Carotid or Internal Carotid Artery Stenosis , but confirmed above findings in [place]. -Head MRI showed no acute changes, but chronic ischemic white matter changes. -TTE ordered as patient is in chronic A-Fib, anticoagulated with Xarelto -PT/OT/Speech consults -Continue high dose statin therapy -Fasting Lipid panel: Total chol 174, LDL 116, HDL 37, Triglycerides 103 5. Chronic A-Fib on anticoagulation -Continue Xarelto 6. DM, type 2 -Continue home medication regimen 7. HTN -Restarted home Metoprolol Tartrate 50 BID -Hydralazine for PRN BP control 8. Cardiomegaly with elevated BNP -TTE: EF 50-55%, with normal pulmonary pressures CODE: Full DVT: Xarelto Diet: Heart Healthy Activity: Ambulate with Assist Dispo: Patient's waxing and waning mental status changes as well as transient blindness and focal weakness are concerning but appear to be associated with transient episodes of A-Fib with RVR. Acute cerebrovascular and infectious processes appear unlikely. Overall picture clouded by underlying dementia. Continue to coordinate with Cardiology and Neuro, await Case Management recommendations on Rehab placement. Addendum - Attending - Attending Attestation Date/Time: 04/07/19 3925 I personally evaluated the patient and discussed the management with Dr. Oleary and Nicole. I agree with the History, Examination, Assessment and Plan documented above with any addition or exceptions noted below. Patient very pleasant this morning and has no complaints. Denies cp/sob/n/v/f/c /abd pain. On exam she has some scant wheezing and an irreg irreg rhythm but otherwise no signs of volume overload. Would give trial of nebs and consider gentle diuresis. CM consulted.
--- NOTE | 2019-04-07 07:24 | CON ---
DATE OF CONSULTATION: REASON FOR CONSULTATION: Atrial fibrillation and recent facial droop. HISTORY OF PRESENT ILLNESS: Ms. Pratt is an 83-year-old woman who receives most of her cardiology care in [place], [place]. She recently presented for hypertension. This is well controlled. She then developed a left facial droop yesterday. She was transferred to MICU for further recommendations. She continues to be in atrial fibrillation. I am unsure whether she has received Xarelto while in the hospital. She is now on Xarelto 20 mg one p.o. q.a.m. She appears to be back to baseline. Heart rate was initially difficult to control, but now appears to be rate controlled, off IV Cardizem and on metoprolol. PAST MEDICAL HISTORY: Diabetes mellitus, atrial fibrillation, hypertension, knee surgery and hysterectomy. SOCIAL HISTORY: No current tobacco or alcohol use. HOME MEDICATIONS: Reviewed. REVIEW OF SYSTEMS: Ten-point review of systems is reviewed as above, otherwise negative. PHYSICAL EXAMINATION: GENERAL: Patient is a pleasant woman, who is in no acute distress. The patient appears their stated age. VITAL SIGNS: Blood pressure 146/80, pulse 68, respirations 20. NEUROLOGIC: The patient is alert and oriented x3 with no focal neurologic deficits. HEENT: Upper airway wheezing, not noted in the lung nieves. NECK: No JVD. Carotid upstroke brisk. No bruits bilaterally. LUNGS: Clear to auscultation with unlabored respirations. BACK: No scoliosis or kyphosis. CARDIAC: Irregularly irregular with normal S1 and S2. No S3 or S4 noted. No significant rubs, murmurs, thrills, or gallops noted throughout the precordium. PMI is not displaced. There is no parasternal heave. ABDOMEN: Soft, nontender, nondistended. No peritoneal signs present. No hepatosplenomegaly. No abnormal striae. EXTREMITIES: 2+ femoral and 2+ dorsalis pedis pulses. No cyanosis, clubbing, or edema. SKIN: No gross abnormalities. PERTINENT LABORATORY DATA: Hemoglobin 12.2, creatinine 0.84, and troponins 0.148. IMPRESSION: 1. Atrial fibrillation with rapid ventricular response, now controlled. 2. Recent cerebrovascular accident/transient ischemic attack. RECOMMENDATIONS: 1. Elevated troponin likely related to demand ischemia from recent CVA and hypertension and atrial fibrillation with rapid ventricular response. Continue conservative therapy. 2. Change metoprolol to p.o. Cardizem. 3. Discontinue flecainide given that she is currently in atrial fibrillation and can address with her primary resort keeper. 4. Overall LVEF does appear normal on recent echo. Job ID: [id number]
[2019-04-07] MEDS: metFORMIN 500 MG TAB PO SCH ×2 (10:20→17:47)
[2019-04-07] MEDS: Aspirin 81 mg Enteric Coated Tablet PO SCH (10:21)
[2019-04-07] MEDS ORDERED: Albuterol Sulfate 1.25 MG/3 ML NEB NEB SCH (13:15)
[2019-04-07] MEDS ORDERED: Albuterol Sulfate 2.5 mg/3 ml Neb NEB SCH (13:15)
--- NOTE | 2019-04-07 14:08 | PDOC.CPN ---
- Subjective Date: 04/07/19 Time: 14:07 - Objective Allergies/Adverse Reactions: Allergies Allergy/AdvReac Type Severity Reaction Status Date / Time No Known Allergies Allergy Unverified 04/04/19 04:51 Visit Medications: Current Medications Acetaminophen (Tylenol) 650 mg PO Q4H PRN PRN Reason: Headache/Fever/Mild Pain (1-3) Last Admin: 04/05/19 17:41 Dose: 650 mg Acetaminophen (Tylenol) 650 mg AL Q6H PRN PRN Reason: Headache/Fever or Pain Albuterol Sulfate (Ventolin) 2.5 mg NEB NOW BING Stop: 04/07/19 15:15 Last Admin: 04/07/19 13:46 Dose: 2.5 mg Albuterol/Ipratropium (Duoneb) 3 ml NEB Q4H PRN PRN Reason: SOB/WHEEZE Last Admin: 04/07/19 00:40 Dose: 3 ml Aspirin (Ecotrin) 81 mg PO DAILY [facility] Last Admin: 04/07/19 10:21 Dose: 81 mg Atorvastatin Calcium (Lipitor) 40 mg PO HS [facility] Last Admin: 04/06/19 21:24 Dose: Not Given Diltiazem HCl (Cardizem Cd) 180 mg PO DAILY [facility] Last Admin: 04/07/19 10:21 Dose: 180 mg Haloperidol Lactate (Haldol) 2 mg SLOW IVP Q4H PRN PRN Reason: Agitation Last Admin: 04/06/19 13:49 Dose: 2 mg Hydralazine HCl (Apresoline) 10 mg SLOW IVP Q4H PRN PRN Reason: .SBP >160 Last Admin: 04/05/19 17:09 Dose: 10 mg Diltiazem HCl 125 mg/Miscellaneous Medication 1 each/ Sodium Chloride 125 mls @ 5 mls/hr IVPB INF [facility]; Protocol Lorazepam (Ativan) 1 mg SLOW IVP WILLCALL [facility] Last Admin: 04/04/19 11:03 Dose: 1 mg Lorazepam (Ativan) 1 mg SLOW IVP Q6H PRN PRN Reason: AGITATION/RESTLESSNESS Metformin HCl (Glucophage) 1,000 mg PO BID-WM [facility] Last Admin: 04/07/19 10:20 Dose: 1,000 mg Rivaroxaban (Xarelto) 20 mg PO 1800 [facility] Last Admin: 04/06/19 17:35 Dose: 20 mg Sodium Chloride (Flush - Normal Saline) 10 ml IVF PRN PRN PRN Reason: Saline Flush Vital Signs & Weight: Vital Signs Temp Pulse Pulse Pulse Resp BP BP 04/07/19 13:46 80 20 04/07/19 11:12 97.6 F 04/07/19 09:45 91 98 134/82 152/104 H 04/07/19 09:28 103 H 92 131/90 152/104 H 04/07/19 08:00 04/07/19 07:10 97.6 F 04/07/19 04:00 97.8 F Pulse Ox Pulse Ox Pulse Ox 04/07/19 13:46 98 04/07/19 11:12 04/07/19 09:45 99 95 04/07/19 09:28 95 100 04/07/19 08:00 98 04/07/19 07:10 04/07/19 04:00 Admit Weight 215 lb 8 oz Weight 223 lb 2.855 oz - Physical Exam General: alert & oriented x3 HEENT: mucus membranes moist Neck: supple neck Cardiac: irregularly regular Lungs: clear to auscultation Neuro: grossly intact Abdomen: unremarkable - Labs Result Diagrams: 04/06/19 00:30 04/06/19 11:31 Troponin/CKMB CK-MB (CK-2) 3.0 ng/mL (0-6.6) 04/05/19 21:34 Troponin I 0.148 ng/mL (< 0.028) H 04/06/19 00:30 - Assessment/Plan Assessment/Plan: Afib TIA vs CVA Increase CCB to 240mg QAM HR 90's to 100's Continue ACT Further recommendations per primary senior enlisted advisor in [place]
[2019-04-07 16:22] VITALS: BMI 34.9
[2019-04-07] MEDS: Rivaroxaban 10 MG TAB PO SCH (17:47)
[2019-04-07] MEDS: Atorvastatin Calcium 40 MG TAB PO SCH (20:52)
[2019-04-07] MEDS ORDERED: Calcium Carbonate 500 MG ChewTAB PO PRN (23:22)
--- NOTE | 2019-04-08 04:49 | PDOC.FM ---
- Subjective Subjective: Mrs. Pratt appeared cheerful during her evaluation this morning, and her only complain was an episode of diarrhea last night. She denied any chest pain, shortness or breath or residual abdominal pain. She continues to feel unsteady on her feet, especially when rising from a seated position. Her [id number] was present during the evaluation, and hopes that Mrs. Pratt can be placed in a rehab facility soon, rather than utilize outpatient or in-home rehab. - Objective Vital Signs & Weight: Vital Signs (12 hours) Temp Pulse Resp BP Pulse Ox 04/08/19 03:26 97.1 F L 04/08/19 00:00 97.8 F 106 H 20 147/86 H 98 04/07/19 23:14 97.8 F 04/07/19 20:05 96 21 H 158/106 H 99 04/07/19 20:00 99 04/07/19 19:22 96.8 F L Weight Admit Weight 97.749 kg Weight 101.232 kg Most Recent Monitor Data Heart Rate from ECG 80 NIBP 147/86 NIBP BP-Mean 106 Respiration from ECG 18 SpO2 97 I&O: 04/06/19 04/07/19 04/08/19 06:59 06:59 06:59 Intake Total 087 017 6019 Output Total 250 1400 950 Balance 650 -523 140 Result Diagrams: 04/06/19 00:30 04/06/19 11:31 Phys Exam - Physical Examination Constitutional: NAD HEENT: PERRLA, moist MMs, sclera anicteric, oral pharynx no lesions Neck: supple, full ROM Respiratory: no rales, no rhonchi Mild wheezing bilaterally Cardiovascular: no significant murmur, no rub Irregularly irregular Gastrointestinal: soft, non-tender, no distention Musculoskeletal: no edema, pulses present Neurological: non-focal, moves all 4 limbs Lymphatic: no nodes Psychiatric: normal affect Skin: no rash Dx/Plan (1) A-fib Code(s): I48.91 - UNSPECIFIED ATRIAL FIBRILLATION Status: Acute Qualifiers: Atrial fibrillation type: paroxysmal Qualified Code(s): I48.0 - Paroxysmal atrial fibrillation (2) Diabetes mellitus Code(s): E11.9 - TYPE 2 DIABETES MELLITUS WITHOUT COMPLICATIONS Status: Acute Qualifiers: Diabetes mellitus type: type 2 Diabetes mellitus detention insulin use: unspecified oysterman insulin use status (3) Encephalopathy acute Code(s): G93.40 - ENCEPHALOPATHY, UNSPECIFIED Status: Acute (4) Hypertensive urgency Code(s): I16.0 - HYPERTENSIVE URGENCY Status: Acute (5) SIRS (systemic inflammatory response syndrome) Code(s): R65.10 - SIRS OF NON-INFECTIOUS ORIGIN W/O ACUTE ORGAN DYSFUNCTION Status: Acute - Plan Plan: 1. Acute Encephalopathy, Greatly Improved -Initially worked up as Infectious (i.e. Meningitis) vs acute CVA/TIA vs. unknown CV Etiology -Encephalopathy has resolved with gradual lowering of BP's and X2 days of antibiotic / steroid therapy -LP Culture: No growth to date -CT Brain: NAF -Brain MRI: NAF -CTA Head: NAF -CTA Neck: NAF -Patient given Vanc and Rocephin in the ED, empirically -Patient received Vanc, Rocephin, Ampicillin on the Medical Floor, empirically - DC'd on 04/06/19 -Dexamethasone administered for 4 days - DC'd on 04/06/19 -Case Management will see patient and family for potential rehab placement near [facility] -Coordinate closely with Cardiology, as that is the most likely etiology of the patient's current encephalopathy 2. SIRS -Fever without a source -Patient continues to remain afebrile -Blood Culture: Negative > 72 hours -Urine Culture: Negative > 72 hours -PE was not suggestive of Meningitis -Patient was wheezing on 04/06/19 and 04/07/19 - CXR on 04/05/19 showed cardiomegaly with mild vascular congestion -Administer nebulizer treatments PRN for wheezing 3. Paroxysmal A. Fib with RVR -Patient had A-Fib with RVR on 04/06/19 -Diltiazem drip started overnight and discontinued around 0200 on 04/06, after HR fell < 60. -Discontinue fllecainide, metoprolol -Cardiology recommended initiating Diltiazem 240 mg PO BID -Continue Xarelto 20 mg PO daily 4. Elevated Troponin Levels -Trops: 0.01, 0.250, 0.148 -Most likely from demand ischemia 5. 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 NAF -CTA Head and Neck showed no common Carotid or Internal Carotid Artery Stenosis , but confirmed above findings in [place]. NAF. -Head MRI showed no acute changes, but chronic ischemic white matter changes. -TTE ordered as patient is in chronic A-Fib, anticoagulated with Xarelto - NAF -PT/OT/Speech consults -Continue high dose statin therapy -Fasting Lipid panel: Total Cholesterol 174, LDL 116, HDL 37, Triglycerides 103 5. Chronic A-Fib on anticoagulation -Continue Xarelto 20 mg PO zari 6. DM, type 2 -Continue home medication regimen 7. HTN -SBP 148 on 04/08/19 -Hydralazine for PRN BP control 8. Cardiomegaly with elevated BNP -TTE: EF 50-55%, with normal pulmonary pressures CODE: Full DVT: Xarelto Diet: Heart Healthy Activity: Ambulate with Assist Dispo: Patient's waxing and waning mental status changes as well as transient blindness and focal weakness are concerning but appear to be associated with transient episodes of A-Fib with RVR. Acute cerebrovascular and infectious processes appear unlikely. Overall picture clouded by underlying dementia. Continue to coordinate with Cardiology and Neuro, await Case Management recommendations on Rehab placement. Addendum - Attending - Attending Attestation Date/Time: 04/08/19 [id number] I personally evaluated the patient and discussed the management with Dr. Rivera. I agree with the History, Examination, Assessment and Plan documented above with any addition or exceptions noted below.
--- NOTE | 2019-04-08 05:59 | PDOC.CPN ---
- Subjective Date: 04/08/19 Time: 16:46 - Objective Allergies/Adverse Reactions: Allergies Allergy/AdvReac Type Severity Reaction Status Date / Time No Known Allergies Allergy Unverified 04/04/19 04:51 Visit Medications: Current Medications Acetaminophen (Tylenol) 650 mg PO Q4H PRN PRN Reason: Headache/Fever/Mild Pain (1-3) Last Admin: 04/05/19 17:41 Dose: 650 mg Acetaminophen (Tylenol) 650 mg [place] Q6H PRN PRN Reason: Headache/Fever or Pain Albuterol/Ipratropium (Duoneb) 3 ml NEB Q4H PRN PRN Reason: SOB/WHEEZE Last Admin: 04/07/19 00:40 Dose: 3 ml Aspirin (Ecotrin) 81 mg PO DAILY [facility] Last Admin: 04/07/19 10:21 Dose: 81 mg Atorvastatin Calcium (Lipitor) 40 mg PO HS [facility] Last Admin: 04/07/19 20:52 Dose: 40 mg Calcium Carbonate (Tums) 1,000 mg PO Q4H PRN PRN Reason: Heartburn or Indigestion Diltiazem HCl (Cardizem Cd) 240 mg PO DAILY [facility] Haloperidol Lactate (Haldol) 2 mg SLOW IVP Q4H PRN PRN Reason: Agitation Last Admin: 04/06/19 13:49 Dose: 2 mg Hydralazine HCl (Apresoline) 10 mg SLOW IVP Q4H PRN PRN Reason: .SBP >160 Last Admin: 04/05/19 17:09 Dose: 10 mg Diltiazem HCl 125 mg/Miscellaneous Medication 1 each/ Sodium Chloride 125 mls @ 5 mls/hr IVPB INF BING; Protocol Lorazepam (Ativan) 1 mg SLOW IVP WILLCALL [facility] Last Admin: 04/04/19 11:03 Dose: 1 mg Lorazepam (Ativan) 1 mg SLOW IVP Q6H PRN PRN Reason: AGITATION/RESTLESSNESS Metformin HCl (Glucophage) 1,000 mg PO BID-WM [facility] Last Admin: 04/07/19 17:47 Dose: 1,000 mg Rivaroxaban (Xarelto) 20 mg PO 1800 BING Last Admin: 04/07/19 17:47 Dose: 20 mg Sodium Chloride (Flush - Normal Saline) 10 ml IVF PRN PRN PRN Reason: Saline Flush Vital Signs & Weight: Vital Signs Temp Pulse Resp BP Pulse Ox 04/08/19 04:15 97.1 F L 80 16 148/98 H 97 04/08/19 03:26 97.1 F L 04/08/19 00:00 97.8 F 106 H 20 147/86 H 98 04/07/19 23:14 97.8 F 04/07/19 20:05 96 21 H 158/106 H 99 04/07/19 20:00 99 04/07/19 19:22 96.8 F L Admit Weight 215 lb 8 oz Weight 223 lb 2.855 oz - Physical Exam General: alert & oriented x3 HEENT: mucus membranes moist Neck: supple neck Cardiac: irregularly regular Lungs: clear to auscultation Musculoskeletal: normal range of motion, no pain, no fluid collection - Labs Result Diagrams: 04/06/19 00:30 04/06/19 11:31 Troponin/CKMB CK-MB (CK-2) 3.0 ng/mL (0-6.6) 04/05/19 21:34 Troponin I 0.148 ng/mL (< 0.028) H 04/06/19 00:30 - Assessment/Plan Assessment/Plan: Assessment/Plan: Afib TIA vs CVA 04/08 REC HR better overall with increase in CCB Needed to add IV CCB for better control Avoid CV given recent TIA? 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
--- NOTE | 2019-04-08 07:21 | EKG ---
Test Reason : STAT CODE Blood Pressure : / mmHG Vent. Rate : 127 BPM Atrial Rate : 105 BPM P-R Int : 000 ms QRS Dur : 092 ms QT Int : 322 ms P-R-T Axes : 000 064 -60 degrees QTc Int : 467 ms Atrial fibrillation with rapid ventricular response Nonspecific ST abnormality Abnormal QRS-T angle, consider primary T wave abnormality Poor anterior R wave progression Abnormal ECG When compared with ECG of 04-APR-2019 23:43, Vent. rate has increased BY [address] now depressed in Inferior leads ST now depressed in Lateral leads Nonspecific T wave abnormality now evident in Inferior leads Confirmed by DR. Abdirahman ARREOLA (3) on 04/08/2019 7:20:28 AM Referred By: CARMEN Confirmed By:DR. Abdirahman ARREOLA
--- NOTE | 2019-04-08 10:04 | PQF ---
DATE: 04-08-19 ATTN : DR. CHANTELLE YEPEZ Please exercise your independent, professional judgment in responding to the clarification form. Clinical indicators are provided on the bottom of this form for your review Please check appropriate box(s) to clarify if the following diagnosis has been ruled in or ruled out: SEPSIS [ ] Ruled in diagnosis [ ] Continue to treat [ ] Resolved [ X ] Ruled out diagnosis [ ] Other diagnosis [ ] Unable to determine In addition, please specify: Present on Admission (POA): [ X ] Yes [ ] No [ ] Unable to determine For continuity of documentation, please document condition throughout progress notes and discharge summary. Thank You. CLINICAL INDICATORS - SIGNS / SYMPTOMS / LABS: ER NOTE 04-04-19: AMS, FEVER, FACIAL DROOP. LABS AT OTHER ED INCLUDED EVIDENCE OF JEANETTE WITH GFR 46, ELEVATED WBC. VS INCLUDED TEMP OF 100.8, UA POSITIVE FOR INFECTION FOR WHICH PT BEGAN TREATMENT ER DX 04-04-19: AMS, L SIDED WEAKNESS, SEVERE SEPSIS, UNK SOURCE H&P 04-04-19: TEMP: 101.7, LETHARGIC, POSSIBLE STROKE, POSSIBLE SEPSIS, POSSIBLE MENINGITIS RISK FACTORS: ER NOTE 04-04-19: AMS, FEVER, FACIAL DROOP. LABS AT OTHER ED INCLUDED EVIDENCE OF JEANETTE WITH GFR 46, ELEVATED WBC. VS INCLUDED TEMP OF 100.8, UA POSITIVE FOR INFECTION FOR WHICH PT BEGAN TREATMENT TREATMENTS: ER NOTE 04-04-19: VANCOCIN IV, ROCEPHIN IV, NS IVF (This form is maintained as a part of the permanent medical record) 2014 [employer], [employer]. All Rights Reserved TINO [email or web address] Office: [phone] [facility]
[2019-04-08] MEDS: metFORMIN 500 MG TAB PO SCH ×2 (10:11→18:25)
[2019-04-08] MEDS: Aspirin 81 mg Enteric Coated Tablet PO SCH (10:12)
--- NOTE | 2019-04-08 10:28 | PQF ---
DATE: 04-08-19 ATTN: DR. ONUR YEPEZ Please exercise your independent, professional judgment in responding to the clarification form. Clinical indicators are provided on the bottom of this form for your review Please check appropriate box(s): [ X ] Encephalopathy: Type: [ X ] Acute [ ] Subacute [ ] Chronic Etiology: [ ] Hypertensive [ ] Metabolic [ ] Toxic [ ] Septic [ ] Other (please specify) Cardiovascular Etiology [ ] Transient Alteration of Awareness [ ] Other diagnosis [ ] Unable to determine In addition, please specify: Present on Admission (POA): [ X ] Yes [ ] No [ ] Unable to determine For continuity of documentation, please document condition throughout progress notes and discharge summary. Thank You. CLINICAL INDICATORS - SIGNS / SYMPTOMS / LABS: ER DX 04-04-19: AMS, L SIDED WEAKNESS, SEVERE WEAKNESS, SEVERE SEPSIS, UNK SOURCE H&P 04-04-19: ACUTE ENCEPHALOPATHY, INFECTIOUS SUCH MENINGITIS VS ACUTE CVA VS BRAIN MASS, LP COMPLETED, HD CT W/O CONTRAST NEGATIVE, PT GIVEN VANC AND ROCEPHIN IN THE ED EMPIRICALLY RISK FACTORS: H&P 04-04-19: CONFUSION, HARD TIME STANDING AND MOVING, AMS, ACTING LETHARGIC, FEVER 101.7, HOME BP WAS 222 SYSTOLIC, STROKE R/O, SIRS W/O SOURCE, ACUTE ENCEPHALOPATHY TREATMENTS: ER NOTE 04-04-19: VANCOCIN IV, ROCEPHIN IV, IVF NS (This form is maintained as a part of the permanent medical record) 2014 [employer], [employer] All Rights Reserved TINO [email or web address] Office: [phone] [facility]
--- NOTE | 2019-04-08 10:42 | PQF ---
DATE: 04-08-19 ATTN: DR. ONUR YEPEZ Please exercise your independent, professional judgment in responding to the clarification form. Clinical indicators are provided on the bottom of this form for your review Please check appropriate box(s): [ ] Hyponatremia please specify etiology, if known [ ] Insignificant Lab Values [ ] Other diagnosis [ X ] Unable to determine In addition, please specify: Present on Admission (POA): [ X ] Yes [ ] No [ ] Unable to determine CLINICAL INDICATORS - SIGNS / SYMPTOMS / LABS: SODIUM: 04-04-19: 132 04-05-19: 132 04-05-19: 132 04-06-19: 135 ER NOTE 04-04-19: AMS, FEVER 100.8 RISK FACTORS: ER NOTE 04-04-19: AMS, FEVER 100.8 H&P 04-04-19: A FIB, RATE CONTROLLED, DM, HTN, CERVICAL SPINE STENOSIS TREATMENTS: ER NOTE 04-04-19: NS IVF SERIES OF LABS/MONITORING (This form is maintained as a part of the permanent medical record) 2014 [employer] All Rights Reserved TINO [email or web address] Office: [phone] [facility]
[2019-04-08] MEDS ORDERED: Diltiazem HCl 125 MG, Admixture Fee 1 EACH in Sodium Chloride 0.9% 100 ML IVPB SCH ×2 (13:15→14:30)
--- NOTE | 2019-04-08 13:21 | PDOC.EVN ---
Event Note - Event Note Event Note: TAMP was notified at approximately 1230 on 04/08/19 that Mrs. Pratt was in A- Fib with RVR, with an HR that was rapidly alternating between +200 BPM and [address] Aleksey Rivera evaluated her in her room, where she admitted to feeling minor palpitations but denied any actual chest pain or shortness of breath. Physical exam revealed no findings other than an irregularly irregular rhythm. She said that she "felt fine" and was eating her lunch at the time of her evaluation. She remained in A-Fib with similar changes in HR, and Dr. Aleksey Rivera evaluated her again with similar results. An EKG and serial troponins were ordered, and Cardiology was notified. Dr. Surya Banerjee (Cardiology) , ordered a 10 mg Cardizem bolus followed by a Cardizem drip set to 10 mg/hr. Dr. Castle (Cardiology), who had seen the patient previously, then ordered that the Cardizem drip be adjusted to 5 mg/hr and that the patient be started on Metoprolol 12.5 mg PO BID, beginning with a NOW dose at approximately 1300. Mrs. Pratt continued to remained asymptomatic, and her HR decreased to 90 BPM amd her BP was measured at 150/94 mmHg.
[2019-04-08 13:37] LABS: Troponin I 0.033 ng/mL (< 0.028)
[2019-04-08] MEDS ORDERED: Metoprolol Tartrate 25 MG TAB PO SCH ×2 (14:00→21:00)
[2019-04-08 16:47] LABS: Troponin I 0.045 ng/mL (< 0.028)
[2019-04-08] MEDS: Rivaroxaban 10 MG TAB PO SCH (18:25)
[2019-04-08 20:28] LABS: Troponin I 0.031 ng/mL (< 0.028)
[2019-04-08] MEDS: Atorvastatin Calcium 40 MG TAB PO SCH (21:34)
--- NOTE | 2019-04-09 05:37 | PDOC.FM ---
- Subjective Subjective: Mrs. Pratt appeared well this morning, and complained only of some mild indigestion overnight. She was visited by Dr. Crowe (Cardiology) this morning who informed her that she should be cleared for DC if she does not have any additional CV events this morning. She seemed optimistic about her prognosis , and looks forward to being DC'd to a rehab facility. - Objective Vital Signs & Weight: Vital Signs (12 hours) Temp Pulse Resp BP Pulse Ox 04/09/19 03:40 97.4 F L 83 14 103/51 L 97 04/08/19 23:52 97.9 F 85 18 145/71 H 94 L 04/08/19 21:38 71 16 04/08/19 20:00 97.4 F L 76 18 169/88 H 99 Weight Admit Weight 97.749 kg Weight 100.561 kg Most Recent Monitor Data Heart Rate from ECG 97 NIBP 135/69 NIBP BP-Mean 91 Respiration from ECG 20 SpO2 98 I&O: 04/07/19 04/08/19 04/09/19 06:59 06:59 06:59 Intake Total 877 1350 483 Output Total 1400 1600 Balance -523 -250 483 Result Diagrams: 04/06/19 00:30 04/06/19 11:31 Phys Exam - Physical Examination Constitutional: NAD HEENT: PERRLA, moist MMs, sclera anicteric, oral pharynx no lesions Neck: no nodes, supple, full ROM Respiratory: no rales, no rhonchi Mild wheezing, chronic Cardiovascular: no significant murmur, no rub Irregularly irregular on auscultation Gastrointestinal: soft, non-tender, positive bowel sounds Musculoskeletal: no edema, pulses present Neurological: non-focal, moves all 4 limbs Lymphatic: no nodes Psychiatric: normal affect Skin: no rash Dx/Plan (1) A-fib Code(s): I48.91 - UNSPECIFIED ATRIAL FIBRILLATION Status: Acute Qualifiers: Atrial fibrillation type: paroxysmal Qualified Code(s): I48.0 - Paroxysmal atrial fibrillation (2) Diabetes mellitus Code(s): E11.9 - TYPE 2 DIABETES MELLITUS WITHOUT COMPLICATIONS Status: Acute Qualifiers: Diabetes mellitus type: type 2 Diabetes mellitus mcc insulin use: unspecified mcc insulin use status (3) Encephalopathy acute Code(s): G93.40 - ENCEPHALOPATHY, UNSPECIFIED Status: Acute (4) Hypertensive urgency Code(s): I16.0 - HYPERTENSIVE URGENCY Status: Acute (5) SIRS (systemic inflammatory response syndrome) Code(s): R65.10 - SIRS OF NON-INFECTIOUS ORIGIN W/O ACUTE ORGAN DYSFUNCTION Status: Acute - Plan Plan: 1. Acute Encephalopathy, Largely Resolved -Initially worked up as Infectious (i.e. Meningitis) vs acute CVA/TIA vs. unknown CV Etiology -Encephalopathy has resolved with gradual lowering of BP's and X2 days of antibiotic / steroid therapy -LP Culture: No Growth > 48 hours -CT Brain: NAF -Brain MRI: NAF -CTA Head: NAF -CTA Neck: NAF -Patient given Vanc and Rocephin in the ED, empirically -Patient received Vanc, Rocephin, Ampicillin on the Medical Floor, empirically - DC'd on 04/06/19 -Dexamethasone administered for 4 days - DC'd on 04/06/19 -Case Management will work with family to establish transition to [facility] in [place], [place] 2. SIRS -Fever without a source -Patient continues to remain afebrile -Blood Culture: Negative > 72 hours -Urine Culture: Negative > 72 hours -LP Culture: No Growth > 48 hours -PE was not suggestive of Meningitis -Family states that patient has mild respiratory dysfunction at baseline -Administer nebulizer treatments PRN 3. Paroxysmal A. Fib with RVR -Patient had A-Fib with RVR on 04/06/19 -Diltiazem drip started overnight and discontinued around 0200 on 04/06, after HR fell < 60. -Discontinue fllecainide, metoprolol -Cardiology recommended initiating Diltiazem 240 mg PO BID -Continue Xarelto 20 mg PO daily -Patient returned to A-Fib with RVR on 04/08/19, with HR +200 BPM -EKG: Negative -Troponins: 0.033, 0.045, 0.031 -Cardiology recommended Cardizem bolus of 10 mg with Cardizem drip at 5 mg/hr -Coordinate closely with Cardiology to wean from drip and plan for DC 4. Elevated Troponin Levels -Trops (04/06/18): 0.01, 0.250, 0.148 -Trops (04/09/19): 0.033, 0.045, 0.031 -Most likely from demand ischemia 5. CVA r/o -CT w/o contrast negative for acute process during overnight event of acute onset of blindness on 04/06/19 -CTA [place] [facility] [place] showed vascular disease of Vertebral and distal Carotids Arteries bilaterally. 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 NAF -CTA Head and Neck showed no common Carotid or Internal Carotid Artery Stenosis , but confirmed above findings in [place]. NAF. -Head MRI showed no acute changes, but chronic ischemic white matter changes. -TTE ordered as patient is in chronic A-Fib, anticoagulated with Xarelto - NAF -PT/OT/Speech consults -Continue high dose statin therapy -Fasting Lipid panel: Total Cholesterol 174, LDL 116, HDL 37, Triglycerides 103 5. Chronic A-Fib on anticoagulation -Continue Xarelto 20 mg PO daily 6. DM, type 2 -Continue home medication regimen 7. HTN -BP was 103/51 -Hydralazine for PRN BP control -Coordinate with Cardiology to optimize medication regimen 8. Cardiomegaly with elevated BNP -TTE: EF 50-55%, with normal pulmonary pressures CODE: Full DVT: Xarelto Diet: Heart Healthy Activity: Ambulate with Assist Dispo: Patient's waxing and waning mental status changes as well as transient blindness and focal weakness are concerning but appear to be associated with transient episodes of A-Fib with RVR, most recent episode with BPM >200 concerning. Acute cerebrovascular and infectious processes continue appear unlikely. Overall picture clouded by underlying dementia. Continue to coordinate with Cardiology and Neuro, to optimize medication regimen and stabilize for transfer to rehab center.
--- NOTE | 2019-04-09 06:55 | PDOC.CPN ---
- Subjective Date: 04/09/19 Time: 08:58 Interval history: HR overall better on IC CCB (low dose) and BB, CCB PO. On ACT - Objective Allergies/Adverse Reactions: Allergies Allergy/AdvReac Type Severity Reaction Status Date / Time No Known Allergies Allergy Unverified 04/04/19 04:51 Visit Medications: Current Medications Acetaminophen (Tylenol) 650 mg PO Q4H PRN PRN Reason: Headache/Fever/Mild Pain (1-3) Last Admin: 04/05/19 17:41 Dose: 650 mg Acetaminophen (Tylenol) 650 mg [place] Q6H PRN PRN Reason: Headache/Fever or Pain Albuterol/Ipratropium (Duoneb) 3 ml NEB Q4H PRN PRN Reason: SOB/WHEEZE Last Admin: 04/08/19 21:38 Dose: 3 ml Aspirin (Ecotrin) 81 mg PO DAILY [facility] Last Admin: 04/08/19 10:12 Dose: 81 mg Atorvastatin Calcium (Lipitor) 40 mg PO HS [facility] Last Admin: 04/08/19 21:34 Dose: 40 mg Calcium Carbonate (Tums) 1,000 mg PO Q4H PRN PRN Reason: Heartburn or Indigestion Last Admin: 04/08/19 19:42 Dose: 1,000 mg Diltiazem HCl (Cardizem Cd) 240 mg PO DAILY [facility] Last Admin: 04/08/19 10:11 Dose: 240 mg Haloperidol Lactate (Haldol) 2 mg SLOW IVP Q4H PRN PRN Reason: Agitation Last Admin: 04/06/19 13:49 Dose: 2 mg Hydralazine HCl (Apresoline) 10 mg SLOW IVP Q4H PRN PRN Reason: .SBP >160 Last Admin: 04/05/19 17:09 Dose: 10 mg Diltiazem HCl 125 mg/Miscellaneous Medication 1 each/ Sodium Chloride 125 mls @ 2.5 mls/hr IVPB INF [facility]; Protocol Stop: 04/09/19 12:00 Lorazepam (Ativan) 1 mg SLOW IVP WILLCALL [facility] Last Admin: 04/04/19 11:03 Dose: 1 mg Lorazepam (Ativan) 1 mg SLOW IVP Q6H PRN PRN Reason: AGITATION/RESTLESSNESS Metformin HCl (Glucophage) 1,000 mg PO BID-[facility] Last Admin: 04/08/19 18:25 Dose: 1,000 mg Metoprolol Tartrate (Lopressor) 25 mg PO BID BING Pantoprazole Sodium (Protonix) 20 mg PO BID BING Rivaroxaban (Xarelto) 20 mg PO 1800 BING Last Admin: 04/08/19 18:25 Dose: 20 mg Sodium Chloride (Flush - Normal Saline) 10 ml IVF PRN PRN PRN Reason: Saline Flush Vital Signs & Weight: Vital Signs Temp Pulse Resp BP Pulse Ox 04/09/19 03:40 97.4 F L 83 14 103/51 L 97 04/08/19 23:52 97.9 F 85 18 145/71 H 94 L 04/08/19 21:38 71 16 04/08/19 20:00 97.4 F L 76 18 169/88 H 99 Admit Weight 215 lb 8 oz Weight 221 lb 11.2 oz - Physical Exam General: alert & oriented x3 HEENT: mucus membranes moist, normocephaly Neck: supple neck Cardiac: irregularly regular Lungs: clear to auscultation, normal breath sounds Neuro: grossly intact Abdomen: unremarkable Skin: clear Musculoskeletal: normal range of motion, no pain - Labs Result Diagrams: 04/06/19 00:30 04/06/19 11:31 Troponin/CKMB CK-MB (CK-2) 3.0 ng/mL (0-6.6) 04/05/19 21:34 Troponin I 0.031 ng/mL (< 0.028) H 04/08/19 19:57 - Telemetry Supraventricular conduction: atrial fibrillation - Assessment/Plan Assessment/Plan: Afib TIA vs CVA Increase BB to 25mg BID this am DC IV CCB at noon Continue PO CCB, NOAC If rate sble off IV CCB, ok for DC this afternoon 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
[2019-04-09] MEDS: Aspirin 81 mg Enteric Coated Tablet PO SCH (09:12)
[2019-04-09] MEDS: metFORMIN 500 MG TAB PO SCH ×2 (09:12→17:32)
[2019-04-09] MEDS: Metoprolol Tartrate 25 MG TAB PO SCH ×2 (09:13→20:58)
--- NOTE | 2019-04-09 11:45 | PRG ---
DATE OF SERVICE: 04/09/2019 Ms. Pratt is a pleasant, happy, and alert this morning. She did have another run of atrial fibrillation with RVR, which responded well to a Cardizem drip and p.o. metoprolol. 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 Job ID: [id number]
[2019-04-09] MEDS ORDERED: Dextrose 5% in Water 1,000 ML IV PRN (12:34)
[2019-04-09] MEDS ORDERED: Dextrose 50% Abboject 50 ML SYRINGE IVP PRN (12:34)
--- NOTE | 2019-04-09 16:52 | EKG ---
Test Reason : AFIB W/RVR-W/CH PAIN Blood Pressure : / mmHG Vent. Rate : 117 BPM Atrial Rate : 131 BPM P-R Int : 000 ms QRS Dur : 082 ms QT Int : 316 ms P-R-T Axes : 000 034 051 degrees QTc Int : 440 ms Atrial fibrillation with rapid ventricular response Abnormal ECG When compared with ECG of 05-APR-2019 18:14, No significant change was found Confirmed by DR. Collin AGUILAR ([id number]) on 04/09/2019 4:52:14 PM Referred By: MARLENI Confirmed By:DR. Collin AGUILAR
[2019-04-09] MEDS: HumaLOG 300 UNITS/3 ML VIAL SC PRN (17:33)
[2019-04-09] MEDS: Rivaroxaban 10 MG TAB PO SCH (17:33)
[2019-04-09] MEDS: Atorvastatin Calcium 40 MG TAB PO SCH (20:59)
[2019-04-09] MEDS ORDERED: HumaLOG 300 UNITS/3 ML VIAL SC PRN (21:41)
--- NOTE | 2019-04-10 05:14 | PDOC.FM ---
- Subjective Subjective: Mrs. Pratt was resting comfortably in her room at the time of evaluation. She states that she slept moderately well throughout the night, and had no feelings of chest pain, heart palpitations, headaches or shortness of breath. She had 1 additional episode of diarrhea last night, but is unconcerned. She is hopeful that she can be transferred to a rehab facility later today. - Objective Vital Signs & Weight: Vital Signs (12 hours) Temp Pulse Resp BP Pulse Ox 04/10/19 04:00 98.5 F 88 18 131/75 97 04/09/19 23:44 97.8 F 86 18 154/70 H 97 04/09/19 20:58 96 04/09/19 20:00 97.4 F L 71 18 123/68 96 Weight Admit Weight 97.749 kg Weight 100.561 kg Most Recent Monitor Data Heart Rate from ECG 97 NIBP 135/69 NIBP BP-Mean 91 Respiration from ECG 20 SpO2 98 I&O: 04/08/19 04/09/19 04/10/19 06:59 06:59 06:59 Intake Total 0917 553 4432.5 Output Total 1600 Balance -629 174 0436.5 Result Diagrams: 04/06/19 00:30 04/06/19 11:31 Phys Exam - Physical Examination Constitutional: NAD HEENT: PERRLA, moist MMs, sclera anicteric, oral pharynx no lesions Neck: supple, full ROM Respiratory: no rales, no rhonchi Mild expiratory wheezes Cardiovascular: no significant murmur, no rub Irregularly irregular heart rhythm on auscultation Gastrointestinal: soft, non-tender, no distention Musculoskeletal: no edema, pulses present Neurological: non-focal, moves all 4 limbs Psychiatric: normal affect Skin: no rash Dx/Plan (1) A-fib Code(s): I48.91 - UNSPECIFIED ATRIAL FIBRILLATION Status: Chronic Qualifiers: Atrial fibrillation type: paroxysmal Qualified Code(s): I48.0 - Paroxysmal atrial fibrillation (2) Diabetes mellitus Code(s): E11.9 - TYPE 2 DIABETES MELLITUS WITHOUT COMPLICATIONS Status: Acute Qualifiers: Diabetes mellitus type: type 2 Diabetes mellitus terminologist insulin use: unspecified terminologist insulin use status (3) Encephalopathy acute Code(s): G93.40 - ENCEPHALOPATHY, UNSPECIFIED Status: Acute (4) Hypertensive urgency Code(s): I16.0 - HYPERTENSIVE URGENCY Status: Acute (5) SIRS (systemic inflammatory response syndrome) Code(s): R65.10 - SIRS OF NON-INFECTIOUS ORIGIN W/O ACUTE ORGAN DYSFUNCTION Status: Acute - Plan Plan: 1. Acute Encephalopathy, Largely Resolved -Initially worked up as Infectious (i.e. Meningitis) vs acute CVA/TIA vs. unknown CV Etiology -Encephalopathy has resolved with gradual lowering of BP's and X2 days of antibiotic / steroid therapy -LP Culture: No Growth > 48 hours -CT Brain: NAF -Brain MRI: NAF -CTA Head: NAF -CTA Neck: NAF -Patient given Vanc and Rocephin in the ED, empirically -Patient received Vanc, Rocephin, Ampicillin on the Medical Floor, empirically - DC'd on 04/06/19 -Dexamethasone administered for 4 days - DC'd on 04/06/19 -Case Management will work with family to establish transition to [facility] in [place], [place] 2. SIRS -Fever without a source -Patient continues to remain afebrile -Blood Culture: Negative > 72 hours -Urine Culture: Negative > 72 hours -LP Culture: No Growth > 48 hours -PE was not suggestive of Meningitis -Family states that patient has mild respiratory dysfunction at baseline -Administer nebulizer treatments PRN 3. Paroxysmal A. Fib with RVR -Patient had A-Fib with RVR on 04/06/19 and 04/08/19 -Resolved with Diltiazem drip on 04/06/19 and Cardizem drip on 04/08/19, both DC' d after resolution -Flecainide DC'd -Cardiology recommended initiating Diltiazem 240 mg PO BID, Metoprolol 25 mg PO BID -Continue Xarelto 20 mg PO daily -Cardiology cleared for DC 4. Elevated Troponin Levels -Trops (04/06/18): 0.01, 0.250, 0.148 -Trops (04/08/19): 0.033, 0.045, 0.031 -Most likely from demand ischemia, ME unlikely 5. 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 NAF -CTA Head and Neck showed no common Carotid or Internal Carotid Artery Stenosis , but confirmed above findings in [facility] [place] [facility] [place]. NAF. -Head MRI showed no acute changes, but chronic ischemic white matter changes. -TTE ordered as patient is in chronic A-Fib, anticoagulated with Xarelto - NAF -PT/OT/Speech consults -Continue high dose statin therapy -Fasting Lipid panel: Total Cholesterol 174, LDL 116, HDL 37, Triglycerides 103 5. Chronic A-Fib on Anticoagulation -See #3 6. DM, Type 2 -Continue home medication regimen 7. HTN -BP was 131/75 -Hydralazine for PRN BP control -Restart home medication regiment following DC 8. Cardiomegaly with elevated BNP -TTE: EF 50-55%, with normal pulmonary pressures CODE: Full DVT: Xarelto Diet: Heart Healthy / Carbohydrate Conscious Activity: Ambulate with Assist Dispo: Patient's waxing and waning mental status changes as well as transient blindness and focal weakness are concerning but appear to be associated with transient episodes of A-Fib with RVR, most recent episode with HR >200 BPM. Acute cerebrovascular and infectious processes continue to appear unlikely. Overall picture clouded by underlying dementia, but patient appears stable and at baseline, per family. Cardiology cleared for transfer to rehab center, ensure close f/u with previously establish label remover. Expected LOS < 24H Addendum - Attending - Attending Attestation Date/Time: 04/10/19 [id number] I personally evaluated the patient and discussed the management with Dr. Rivera. I agree with the History, Examination, Assessment and Plan documented above with any addition or exceptions noted below. Daughter c/o wheezing, but none audible on exam except over trachea. Will monitor closely. Otherwise doing well and awaiting placement.
--- NOTE | 2019-04-10 07:51 | PDOC.CPN ---
- Subjective Date: 04/10/19 Time: 07:50 Interval history: Doing well. Rate controlled On BB, CCB and NOAC - Objective Allergies/Adverse Reactions: Allergies Allergy/AdvReac Type Severity Reaction Status Date / Time No Known Allergies Allergy Unverified 04/04/19 04:51 Visit Medications: Current Medications Acetaminophen (Tylenol) 650 mg PO Q4H PRN PRN Reason: Headache/Fever/Mild Pain (1-3) Last Admin: 04/05/19 17:41 Dose: 650 mg Acetaminophen (Tylenol) 650 mg MO Q6H PRN PRN Reason: Headache/Fever or Pain Albuterol/Ipratropium (Duoneb) 3 ml NEB Q4H PRN PRN Reason: SOB/WHEEZE Last Admin: 04/08/19 21:38 Dose: 3 ml Aspirin (Ecotrin) 81 mg PO DAILY [facility] Last Admin: 04/09/19 09:12 Dose: 81 mg Atorvastatin Calcium (Lipitor) 40 mg PO HS [facility] Last Admin: 04/09/19 20:59 Dose: 40 mg Calcium Carbonate (Tums) 1,000 mg PO Q4H PRN PRN Reason: Heartburn or Indigestion Last Admin: 04/08/19 19:42 Dose: 1,000 mg Dextrose/Water (Dextrose 50%) 25 gm IVP PRN PRN PRN Reason: HYPOGLYCEMIA PROTOCOL Diltiazem HCl (Cardizem Cd) 240 mg PO DAILY [facility] Last Admin: 04/09/19 09:13 Dose: 240 mg Glucagon (Glucagon) 1 mg IM PRN PRN PRN Reason: HYPOGLYCEMIA PROTOCOL Haloperidol Lactate (Haldol) 2 mg SLOW IVP Q4H PRN PRN Reason: Agitation Last Admin: 04/06/19 13:49 Dose: 2 mg Hydralazine HCl (Apresoline) 10 mg SLOW IVP Q4H PRN PRN Reason: .SBP >160 Last Admin: 04/05/19 17:09 Dose: 10 mg Dextrose/Water (D5w) 1,000 mls @ 0 mls/hr IV INF PRN PRN Reason: HYPOGLYCEMIA PROTOCOL Insulin Human Lispro (Humalog) 0 units SC .MILD SLIDING SCALE PRN; Protocol PRN Reason: MILD SLIDING SCALE Last Admin: 04/09/19 17:33 Dose: 2 unit Insulin Human Lispro (Humalog) 0 units SC .BEDTIME SLIDING SC PRN PRN Reason: Bedtime Correctional Scale Lorazepam (Ativan) 1 mg SLOW IVP WILLCALL [facility] Last Admin: 04/04/19 11:03 Dose: 1 mg Lorazepam (Ativan) 1 mg SLOW IVP Q6H PRN PRN Reason: AGITATION/RESTLESSNESS Metformin HCl (Glucophage) 1,000 mg PO BID-WM [facility] Last Admin: 04/09/19 17:32 Dose: 1,000 mg Metoprolol Tartrate (Lopressor) 25 mg PO BID [facility] Last Admin: 04/09/19 20:58 Dose: 25 mg Pantoprazole Sodium (Protonix) 20 mg PO BID [facility] Last Admin: 04/09/19 20:58 Dose: 20 mg Rivaroxaban (Xarelto) 20 mg PO 1800 [facility] Last Admin: 04/09/19 17:33 Dose: 20 mg Sodium Chloride (Flush - Normal Saline) 10 ml IVF PRN PRN PRN Reason: Saline Flush Vital Signs & Weight: Vital Signs Temp Pulse Resp BP Pulse Ox 04/10/19 06:45 97 04/10/19 04:00 98.5 F 88 18 131/75 97 04/09/19 23:44 97.8 F 86 18 154/70 H 97 04/09/19 20:58 96 04/09/19 20:00 97.4 F L 71 18 123/68 96 Admit Weight 215 lb 8 oz Weight 221 lb 11.2 oz - Physical Exam General: alert & oriented x3 Cardiac: irregularly regular Lungs: clear to auscultation Neuro: grossly intact Abdomen: active bowel sounds Musculoskeletal: no pain - Labs Result Diagrams: 04/06/19 00:30 04/06/19 11:31 Troponin/CKMB CK-MB (CK-2) 3.0 ng/mL (0-6.6) 04/05/19 21:34 Troponin I 0.031 ng/mL (< 0.028) H 04/08/19 19:57 - Problem (1) A-fib Code(s): I48.91 - UNSPECIFIED ATRIAL FIBRILLATION Qualifiers: Atrial fibrillation type: paroxysmal Qualified Code(s): I48.0 - Paroxysmal atrial fibrillation Assessment and Plan: Stable on BB, CCB Continue NOAC No other changes Ok for DC will sign off (2) Encephalopathy acute Code(s): G93.40 - ENCEPHALOPATHY, UNSPECIFIED (3) HTN (hypertension) Code(s): I10 - ESSENTIAL (PRIMARY) HYPERTENSION
[2019-04-10] MEDS: metFORMIN 500 MG TAB PO SCH (09:10)
[2019-04-10] MEDS: Aspirin 81 mg Enteric Coated Tablet PO SCH (09:11)
[2019-04-10] MEDS: Metoprolol Tartrate 25 MG TAB PO SCH (09:11)
[2019-04-10] MEDS: HumaLOG 300 UNITS/3 ML VIAL SC PRN (12:07)
[2019-04-10 12:44] LABS: Hemoglobin 13.3 g/dL (12.0-16.0); Mean Corpuscular HGB CONC 33.5 g/dL (32.0-36.0); Mean Corpuscular Hemoglobin 30.4 pg (27.0-31.0); Mean Corpuscular Volume 90.7 fL (78.0-98.0); Mean Platelet Volume 8.2 fL (7.4-10.4); Platelet Count 253 thou/uL (130-400); RBC Distribution Width 12.3 % (11.5-14.5); Red Blood Cell (RBC) Count 4.36 mill/uL (4.20-5.40); White Blood Cell (WBC) Count 13.3 thou/uL (4.8-10.8)
[2019-04-10 13:02] LABS: Anion Gap 11 mmol/L (10-20); BUN (Urea Nitrogen) 19 mg/dL (9.8-20.1); Calc. Creatinine Clearance 67 mL/min (70-130); Calcium 9.1 mg/dL (7.8-10.44); Carbon Dioxide 30 mmol/L (23-31); Chloride 98 mmol/L (98-107); Estimated GFR-MDRD 51; Glucose 180 mg/dL (83-110); Sodium 135 mmol/L (136-145)
[2019-04-10 14:13] VITALS: BP 125/83; TEMP 97.2
--- NOTE | 2019-04-11 05:26 | PQF ---
GALE MATHUR BRANDON [id number] CLINICAL DOCUMENTATION CLARIFICATION FORM: POST DISCHARGE Addendum to original discharge summary date: ____ Late entry note date: __ DATE: 04/16/19 ATTN: Roldan Bliss Please exercise your independent, professional judgment in responding to the clarification form. Clinical indicators are provided on the bottom of this form for your review Per Physician query response from Aleksey Hernández of " Acute Encephalopathy due to cardiovascular etiology.Can you please further specify, based on your clinical judgment, the specificity of the cardiovascular source? [ x ] Paroxysmal Atrial Fibrillation with RVR [ ] Demand Ischemia [ ] CVA [ ] TIA [ ] Hypertensive urgency [ ] Other diagnosis please specify [ ] Unable to determine In addition, please specify: Present on Admission (POA): [ x ] Yes [ ] No [ ] Unable to determine For continuity of documentation, please document condition throughout progress notes and discharge summary. Thank You. CLINICAL INDICATORS - SIGNS / SYMPTOMS / LABS Event notes 04/05 Dr. Kinney pg.1- "Went to assess pt GCS 12 (3E,6M,3V) which decrease from seeing her in ED yesterday" PN Dr. Wade 04/05- "Chief complaint: Altered mental status" Family Med PN 04/06 Dr. Kinney pg.1- "Pt had an episode of A.fib with RVR overnight" Family Med PN 04/06 Dr. Kinney pg.1- "Acute elevation in troponin" Family Med PN 04/06 Dr. Kinney pg.4- "acute Encephalopathy possible cause was HTN urgency vs emergency" Family Med PN 04/06 Dr. Kinney pg.4-"Elevated troponin levels, trop 0.250, 0.148, most likely from demand ischemia" Physician Documentation 04/08 Dr. Rivera pg.1- "Acute encephalopathy cardiovascular etiology" Family Med PN 04/09 pg.4- "Patient's waxing and waning mental status changes as well as transient blindness and focal weakness are concerning but appear to be associated with transient episodes fo A-fib with RVR" DS 04/10 pg.1- "Acute encephalopathy secondary to sporadic periods of uncontrolled atrial fibrillation, transient ischemic attack versus cerebral accident rule out" RISK FACTORS Hypertension- Consult 04/04 pg.1 Diabetes- Consult 04/04 pg.1 Chronic A-fib- PN Family Med 04/09 pg.4 TREATMENTS: IV Fluids- SEP 28 Echocardiogram 04/05 CT Brain 04/05 Neuro Check -Event note 04/05 Dr. Kinney Diltiazem HCl (Cardizem) IV- SEP 28 (This form is maintained as a part of the permanent medical record) 2014 [employer] All Rights Reserved Jd [email or web address] [not provided] MTDD
--- NOTE | 2019-04-11 06:16 | DIS ---
DATE OF ADMISSION: 04/04/2019 DATE OF DISCHARGE: 04/10/2019 ADMITTING ATTENDING: Deion Small MD DISCHARGE ATTENDING: Roldan Dueñas MD CONSULTS: Dr. Alyson Wade, Neurology; Dr. Will Stroud, Cardiology, and Dr. Aniya Banerjee, Cardiology. PROCEDURES: EKG showing atrial fibrillation; brain MRI showing moderate chronic ischemia and white matter changes, otherwise no acute findings; CT angiography, mild atherosclerotic changes in the bulbs bilaterally, with no evidence of carotid or internal carotid artery stenosis. Atherosclerotic calcification of the distal right vertebral artery at the base of the skull, which does result in moderate luminal stenosis of the right vertebral artery beyond the stenosis, very small, CT [place] angio with contrast. 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 Otherwise, there is no significant intracranial arterial stenosis or occlusion identified. No discrete intracranial aneurysm was seen, brain CT showing no acute intracranial abnormalities. EKG showed atrial fibrillation with rapid ventricular response, atrial rate 131. PRIMARY DIAGNOSIS: Acute encephalopathy secondary to sporadic periods of uncontrolled atrial fibrillation with rapid ventricular response, transient ischemic attack versus cerebrovascular accident rule out. SECONDARY DIAGNOSES: Systemic inflammatory response syndrome, hypertension, diabetes mellitus, hypertensive urgency, and dementia. DISCHARGE MEDICATIONS: 1. Diltiazem 240 mg. 2. Metoprolol 25 mg b.i.d. Discontinued medications; 1. Xarelto 20 mg. 2. Pantoprazole 20 mg. 3. Metformin 1000 mg b.i.d. 4. Lorazepam 1 mg. 5. Humalog 2 units. 6. Hydralazine 10 mg. 7. Haloperidol 2 mg. 8. Calcium carbonate 1000 mg. 9. Atorvastatin 40 mg. 10. Aspirin 81 mg. 11. Albuterol-ipratropium 3 mL nebulizer. HPI/HOSPITAL COURSE: Ms. Peña is an 83-year-old female with past medical history significant for atrial fibrillation, treated with Xarelto, hypertension and diabetes mellitus, who presented to the emergency department with altered mental status. The patient had a hard time standing or moving, but was ultimately sent home and diagnosed with a UTI. Following presentation to the ED a second time, the patient continued to have altered mental status, and was acting lethargic. She was complaining of a headache that was making her cry, as it was a 10/10 pain, with garbled speech. She could only understand what was being said to her and could not respond appropriately, and aphasia secondary to CVA or TIA was suspected. She had a fever of 101.7. Her gait was noted to be shuffled and ataxic. Her systolic blood pressure was measured at 222. She was transferred from the outside hospital to the emergency department, [facility] in [place], [place], where she was admitted to the [facility]. During her stay, she had several episodes of uncontrolled atrial fibrillation that resulted in multiple worrisome signs such as transient blindness, transient hemiparesis, and continued altered mental status. Repeat imaging modalities all were negative to include CT brain, MRI brain, CT angiogram [place]. Multiple EKGs all continued to show atrial fibrillation, however, several EKG showed atrial fibrillation with rapid ventricular response. Cardiology was consulted to assist with ruling out of CVA versus TIA and other infectious disease processes and it was determined that these transient episodes of altered mental status and departure is from baseline cognitive function as well as visual disturbances and hemiparesis were associated with periods of atrial fibrillation. This was controlled with diltiazem 240 mg p.o. as well as a diltiazem drip, followed by a Cardizem drip. Additionally, she was put on a beta jose l, metoprolol 25 mg p.o. daily. The drips were discontinued following resolution of her atrial fibrillation with rapid ventricular response. She continued to remain afebrile and have no more hypertensive crises. She remained stable for multiple days until she was cleared for discharge by Cardiology. Following placement at an outside rehab facility, she was transported to the outside facility by her family in a private vehicle and was discharged with followup at her previously established flatbed stitcher in the [facility] [place]. DISPOSITION: Stable. DISCHARGE INSTRUCTIONS: 1. Location: Rehab Facility 2. Diet: Heart healthy and carbohydrate conscious. 3. Activity: Ambulate with assist. 4. Followup: The patient will require physical therapy and occupational therapy evaluation following placement in a rehab facility. Additionally, she was instructed to follow up with her previously established flatbed stitcher in the [facility] [place] at her earliest convenience, preferably within the next 2 weeks. Job ID: [id number] [facility]
== END 2019-04-10 15:31 | DRG 309 ==
LOC: ERS 03:46 → 2SE 07:31 → IMCU/EMU 04-05 19:50 → 2SE 04-08 08:50
PROVIDERS: ADMIT Family Medicine; ATTEND Family Medicine
DX: I48.0 Paroxysmal atrial fibrillation (principal); G93.49 Other encephalopathy; R65.10 Systemic inflammatory response syndrome (SIRS) of non-infectious origin without acute organ dysfunction; I24.8 Other forms of acute ischemic heart disease; H53.129 Transient visual loss, unspecified eye; I16.0 Hypertensive urgency; E11.9 Type 2 diabetes mellitus without complications; I10 Essential (primary) hypertension; M48.02 Spinal stenosis, cervical region; I51.7 Cardiomegaly; Z90.710 Acquired absence of both cervix and uterus; Z79.01 Long term (current) use of anticoagulants; Z79.899 Other long term (current) drug therapy; Z79.82 Long term (current) use of aspirin; Z79.84 Long term (current) use of oral hypoglycemic drugs
CPT/HCPCS: 36415; 36416; 62270; 70450; 70496; 70498; 70551; 71045; 76380; 80048; 80061; 81001; 82550; 82553; 83605; 83735; 83880; 84100; 84145; 84484; 85014; 85018; 85025; 85027; 85049; 85610; 85730; 87040; 87070; 87086; 87205; 93005; 93010; 93306; 94640; 96361; 96365; 96367; 96375; A4353; J0290; J0360; J0696; J1100; J1630; J1650; J2060; J2405; J3010; J3370; J3490; J7050; J7611; J7620; Q9966